=== PATIENT | female | born 1995 | race Caucasian/White ===

== ENCOUNTER 2025-01-02 15:18 | Outpatient (REF) | payer BC, MEDICAID, SELFPAY ==
--- OUTSIDE RECORDS SUMMARY | 2025-01-02 16:39 | XMS_ITS | Clinical Summary ---
Author Organization [facility] Address [address] [place] [address] Phone Care Team Providers Care Delivery Engineer Name Role Phone Unavailable Primary Care Provider [...]
--- OUTSIDE RECORDS SUMMARY | 2025-01-02 16:39 | XMS_ITS | Clinical Summary ---
Author Organization [facility] Address [address] [place] [address] Care Team Providers Care Ice Skater Name Role Phone Teena Orozco MD Primary [...] age to complete this topic Care Teams Ice Skater Relationship Specialty Start Date End Date Teena Orozco MD PCP - General Internal Medicine 01/06/21
--- OUTSIDE RECORDS SUMMARY | 2025-01-02 16:39 | XMS_ITS | Encounter Summary ---
Author Organization [facility] Address [address] [place] [address] Phone Care Team Providers Care Varitypist Name Role Phone Cristina Franks MD Primary Care Provider [phone] Encounter Details Date Type Department Care Team (Late st Contact Info) Description 01/09/2018 Conversion Encounter [facility] [address] [place] [address] Cristina Franks MD [address] [place] [address] Social History Tobacco Use Types Packs/Day Years [...] on filedocumented in this encounter Care Teams Varitypist Relationship Specialty Start Date End Date Cristina Franks MD [address] [place] [address] PCP - General 12/29/17 10/03/24 documented as of this encounter
--- OUTSIDE RECORDS SUMMARY | 2025-01-02 16:39 | XMS_ITS | Clinical Summary ---
Author Organization [facility] Address [address] [place] [address] Care Team Providers Care Napper Runner Name Role Phone Zee Lee Primary Care [...] from anxiety and stress Bipolar I disorder ([facility] V24, [facility] V28) Asthma 10/24/2015 Encounters Date Type Department Care Team Description 10/19/2024 10:30 AM EST Office Visit Gastroenterology - [address] [facility] [address] [place] [phone] Lesley Bojorquez MD Gastroesophageal reflux disease with esophagitis without hemorrhage (Primary Dx) from Last 3 Months Immunizations Name Administration Dates Next Due DTP 02/26/1998,1997,1997 DTaP (Infanrix) 6wks to less than 7yo 04/18/2002 ,11/08/1998 DTaP, IPV, Hib, Hepatitis B Combined (Vaxelis) 6wks to less than 5yo 11/08/1998,02/26/1998,1997,09/17 HQwN-VPH-ZTA (Pentacel) 2mo to less than 5yo 11/08/1998,02/26/1998,1997,09/17 [...] GERD (gastroesophageal reflux disease) Bipolar 1 disorder ([facility] V24, [facility] V28) Family History Medical History Relation [...] Description 01/09/2025 3:30 PM EDT Office Visit [facility] Hematology Oncology [address] [place] [phone] Cristin Dutta MD [address] [place] [address] Health Maintenance Due Date Last Done Comments [...] * HIV Screening (01/27/2024) HIV Screening abstracted [facility] Provider MD HEALTH MAINTENANCE Final Result * Hepatitis C Screening (01/27/2024) Hepatitis C Screening abstracted [facility] Provider MD HEALTH MAINTENANCE Final Result * Gonorrhea/Chlamydia Screening (01/27/2024) Gonorrhea/Chla mydia Screening abstracted [facility] Provider MD HEALTH MAINTENANCE Final Result * Pap smear (10/14/2022) 10/14/2022 Narrative HISTORICAL TESTING LAB RESULTING AGENCY - 10/19/2022 3:21 PM EST [id number] THINPREP PAP, IMAGED: NEGATIVE FOR SQUAMOUS INTRAEPITHELIAL [...] Most Recently Relevant to Health Maintenance Insurance [facility] [place] - [place] Care Teams Napper Runner Relationship Specialty Start Date End Date Zee Lee PA [address] [place] [address] PCP - General Beef Killer 12/11/24
== END 2025-01-02 15:19 | disposition home or self-care (01) ==
LOC: HO.LAB 15:18
PROVIDERS: PCP Physician Assistant; Visit Provider Internal Medicine Endocrinology, Diabetes & Metabolism
DX: Z13.89 Encounter for screening for other disorder (principal)

== ENCOUNTER 2025-01-02 15:18 | Outpatient (AMB) | payer BC, MEDICAID, SELFPAY ==
[2025-01-02 15:25] VITALS: BP 128/60; PULSE 102; O2SAT 96; BMI 44.8
--- NOTE | 2025-01-02 15:25 | MHC.OFFVIS ---
Vital Signs 01/02/25 15:25 Height 5 ft 4 in Weight 261 lb 3.964 oz BMI 44.8 BP 128/60 Blood Pressure Location Lt brachial Position Sitting Pulse 102 H Pulse Source Pulse Oximeter Pulse Oximetry (%) 96 Oxygen Delivery Method Room Air Intake Visit Reasons: PCOS Intake Note: New patient externally referred for PCOS. Charge Accounts Audit Clerk Required: No Accompanied by: Self / Same As Patient Allergies No Known Allergies Allergy (Verified 01/02/25 15:29) Medication List - Last Reconciled 01/02/25 by Glenn Perez MD bupropion HCl XL (Wellbutrin XL) 300 mg PO QAM bupropion HCl XL (Wellbutrin XL) 150 mg PO QAM clonidine HCl 0.1 mg PO BEDTIME fluticasone propionate 110 mcg/actuation 1 puff inhalation BID lurasidone (Latuda) 60 mg PO DAILY norgestimate-ethinyl estradiol 0.25-0.035 mg (Sprintec (28)) 1 tab PO DAILY HPI Comments Details: The patient is a 29-year-old female presenting with concerns regarding suspected Polycystic Ovarian Syndrome (PCOS). Her menstrual periods have been regular on control. She reports facial hair growth on her chin, managed by plucking. Prior testing has included elevated cortisol levels, and she suspects Venice's syndrome due to symptoms like facial fullness. She has experienced chronic weight issues despite losing 35 pounds since 2022 through lifestyle changes. A history of metformin use was noted for weight loss, which was discontinued due to side effects. The patient has a history of Bipolar Disorder, Type I, and no known personal history of diabetes. - Metformin: Previously used for weight loss; discontinued due to gastrointestinal side effects. - Corticosteroids: Elevation in cortisol noted, linked to ongoing evaluation for possible Venice's syndrome but could be due to control pills raising CBG. Menarche was age 11. Menses have been regular . on BCP OCP use: On Sprintec Metformin use: Took but had diarrhea Weight gain: Chronic problem. Lost 35 lbs since 2022 . Calorie deficit and exercise more . Never took wt loss medications. The patient has been practicing a calorie deficit diet since 2022, which has contributed to her weight loss. There is no mention of specific dietary preferences, food allergies, or intolerances. Emphasis on calorie reduction and general diet control is indicated as part of her weight management strategy. Hirsutism/hyperandrogenism: Chin, plucks to get rid of. Is bothersome to treat Trying to conceive/clomiphene: No Ovarian U/S: No T2DM or acanthosis: No -paternal gramndfather Snores at night - seeing sleep specialist - Endocrine System: Reports irregularities possibly indicative of PCOS, facial hair. - Reproductive System: Reports regular periods due to control; denies current ovulatory concerns. - Gastrointestinal System: Reports past metformin use, associated diarrhea. - Cardiovascular/Respiratory Systems: Denies snoring considerations; referred for possible sleep apnea. - Neurological/Psychiatric: Reports previous psychosis, diagnosed with Bipolar Disorder, Type I; no current neuropsychiatric issues mentioned. Lipids: [] BP: [] Labs: Testosterone equals 30. Normal prolactin, normal TSH, normal 70 hydroxy progesterone level [facility] Medical History (Updated 01/02/25 @ 15:28 by Glenn Perez MD) Polycystic ovary Surgical History No pertinent past surgical history Family History Mother Hypercholesteremia Father Hypercholesteremia Social History Alcohol intake: current Alcohol intake frequency: a few times a month e-Cigarette/Vaping Use: Currently Using Substance Use Type: Marijuana Physical Exam Vital Signs: Last Vital Signs Pulse 102 H 01/02/25 15:25 BP 128/60 01/02/25 15:25 Pulse Ox 96 01/02/25 15:25 Oxygen Delivery Method Room Air 01/02/25 15:25 BMI result Body Mass Index 44.8 Const Other: Absence of cushingoid features. Thyroid gland is normal size weighs about 15 g. There are no thyroid nodules palpated. Hair growth is present under chin Assessment & Plan Assessment & Plan (1) Polycystic ovary: Code(s): E28.2 - Polycystic ovarian syndrome Category: Medical Plan: This is a 29-year-old female with workup consistent with PCOS. We will complete workup by checking for adrenal tumor . We will make referral to radiation therapy technologist. 1. Polycystic Ovarian Syndrome (PCOS) The symptom profile suggests PCOS, including regular periods on contraceptives and facial hair growth, warranting further hormone level testing and potential treatment adjustments. 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 3. Insulin Resistance and Obesity Address ongoing weight management through sustained lifestyle strategies, assessing for potential pharmacological interventions for insulin resistance control. Will refer to radiation therapy technologist 4. Suspected Sleep Apnea Awaiting evaluation by a sleep specialist, considering sleep apnea's potential contribution to metabolic concerns. 5. Hirsutism Initiation of spironolactone, careful consideration and monitoring of function. Warned patient not to become on spironolactone of the dangers to the male fetus of doing so. We will check basic metabolic panel in 10 days I reviewed the patient's symptoms and provided detailed explanations and guidance on polycystic ovarian syndrome (PCOS) and its implications. Given the elevated cortisol levels, I elaborated on the testing procedures to rule out Ronnie's syndrome, detailing the 24-hour urine cortisol and salivary cortisol. Spironolactone was recommended for hirsutism, with a discussion on its efficacy, side effects, and contraceptive interactions. We discussed the weight management strategies and potential impact of insulin resistance. I advised on the necessity of sleep studies to further evaluate suspected sleep apnea. Emphasis was placed on comprehensive care, proper follow-up, and an integrated treatment plan. - Collect 24-hour urine sample as instructed for cortisol testing. - Consider having the salivary cortisol test as advised. - Start spironolactone as prescribed for managing facial hair. - Continue lifestyle modifications, including diet and exercise, to manage weight. - Follow up with a radiation therapy technologist for dietary guidance. - Await sleep specialist appointment in March for potential sleep apnea evaluation. - Return for follow-up in 3 months to review progress and test results. - Contact a healthcare provider if experiencing side effects or concerns. The patient had an opportunity to ask questions regarding treatment plan. The patient expressed understanding and agreement with the above treatment plan. Patient was informed and verbally consented to the use of an ambient scribe for clinic note documentation during this visit. Orders: Orders Cortisol, Free 24Hr Urine Today E28.2 - Polycystic ovarian syndrome Saliva Cortisol Today E28.2 - Polycystic ovarian syndrome DHEA Sulfate 10 Days E28.2 - Polycystic ovarian syndrome Creatinine, 24 Hr Group Today E28.2 - Polycystic ovarian syndrome Basic Metabolic Panel 10 Days E28.2 - Polycystic ovarian syndrome Referrals Nutrition/Dietitian Referral E28.2 - Polycystic ovarian syndrome Medications: New spironolactone 100 mg PO DAILY 30 tabs 4RF Coding Level of Care Code New Pt Level 4 (61067) Diagnoses Polycystic ovary E28.2
--- OUTSIDE RECORDS SUMMARY | 2025-01-02 16:13 | XMS_ITS | Clinical Summary ---
Author Organization Patient Business Ser [facility] Address [address] [place] [address] Care Team Providers Care Weaver Needle Loom Name Role Phone Zee Lee Primary Care Provider Allergies No known active allergies Medications norelgestromin-e thinyl estradiol (ORTHO EVRA) 150-35 mcg/[address] 1 Patch onto the skin once a week. Active buPROPion XL (WELLBUTRIN XL) 150 mg 24 hr tablet Take 1 tablet (150 mg total) by mouth 1 (one) time each day in the morning. Active norgestimate-eth inyl estradioL (ORTHO-CYCLEN) 0.25-35 mg-mcg per tablet Take 1 tablet by mouth 1 (one) time each day. 4 Active hydrOXYzine HCL (ATARAX) 10 mg tablet TAKE 1 TAB BY MOUTH EVERY DAY NEEDED FOR ANXIETY AND 1 TO 3 TABS AT BEDTIME NEEDED FOR SLEEP 1 Active lurasidone (Latuda) 40 mg tablet TAKE ONE TABLET BY MOUTH DAILY WITH DINNER*LAURIE TRISTAN MD 1 Active clonazePAM (KlonoPIN) 0.5 mg tablet Take 0.5 tablets (0.25 mg total) by mouth 2 (two) times a day. 1 Active albuterol HFA (PROAIR HFA ; PROVENTIL HFA ; VENTOLIN HFA) 90 mcg/actuation inhaler Inhale 2 Puffs into the lungs every 4 hours as needed for Cough or Wheezing. 1 Active FLUoxetine (PROzac) 40 mg capsule TAKE 1 CAPSULE BY MOUTH DAILY. TAKE WITH 20 MG TABLET FOR 60 MG TOTAL DAILY. 1 Active reservoir inhalation (INSPIREASE) device Inhale 1 Device into the lungs as needed (With inhaler). 6 Active lansoprazole (PREVACID) [address] Burkett ns:Gastroesophag eal reflux disease, unspecified whether esophagitis present Take 1 capsule (30 mg total) by mouth 1 (one) time each day. Do not crush or chew. 30 each 11 4 07/11/20 25 Active buPROPion XL (WELLBUTRIN XL) 300 mg 24 hr tablet Take 1 tablet (300 mg total) by mouth 1 (one) time each day. Active fluticasone HFA (Flovent HFA) 220 mcg/actuation inhaler Inhale 2 puffs by mouth. 4 Active lurasidone (LATUDA) 60 mg tablet Take 1 tablet (60 mg total) by mouth 1 (one) time each day. Active albuterol HFA (PROAIR HFA ; PROVENTIL HFA ; VENTOLIN HFA) 90 mcg/actuation inhaler Inhale 2 puffs by mouth Every 4 hours as needed. Active hydrocortisone 1 % topical cream apply topically 3 times a day for 7 days 4 Active cloNIDine (CATAPRES) 0.1 mg tablet Take 1 tablet (0.1 mg total) by mouth 2 (two) times a day if needed. 5 Active Active Problems Problem Noted Date Diagnosed Date Anxiety 07/03/2024 Major depression 07/03/2024 Chronic neutrophilia 02/10/2021 Overview (07/03/2024): Seen by Dr Casarez- last negative, posible from anxiety and stress Bipolar I disorder ([facility] V24, [facility] V28) Asthma 10/24/2015 Encounters Date Type Department Care Team Description 10/19/2024 10:30 AM EST Office Visit Gastroenterology - [address] [facility] [address] [place] [phone] Lesley Bojorquez MD Gastroesophageal reflux disease with esophagitis without hemorrhage (Primary Dx) from Last 3 Months Immunizations Name Administration Dates Next Due DTP 02/26/1998,1997,1997 DTaP (Infanrix) 6wks to less than 7yo 04/18/2002 ,11/08/1998 DTaP, IPV, Hib, Hepatitis B Combined (Vaxelis) 6wks to less than 5yo 11/08/1998,02/26/1998,1997,09/17 [id number] (Pentacel) 2mo to less than 5yo 11/08/1998,02/26/1998,1997,09/17 HPV 9-valent (Gardisil) 9yo to less than 46yo 06/30/2018,11/27/2016 HPV, Quadrivalent 11/25/2015 Hepatitis B Pediatric (Enger ix B; Recombivax HB) to less than 20 yo 05/09/1998,1997,1997 IPV Inactivated polio (Ipol) 6wks and older 04/18/2002,07/29/1998,1997,09/17 Influenza Quadravalent, MDCK , 0.5ml, preservative free (Flucelvax) 6mo and older 06/30/2018 Influenza trivalent, 0.5mL, preservative free (Fluarix; FluLaval; Fluzone) ages 6mo and older (Afluria) 3 years and older 06/01/2016,06/28/2015 MMR, measles mumps and rubel la Live (Priorix; M-M-R II) 12mo and older 04/18/2002,07/29/1998 Meningococcal MCV4P 06/18/2014,06/24/2009 PPD Test 06/28/2015 Pneumococcal polysaccharide 23 valent (Pneumovax 23) 2yo and older 11/25/2015 Tdap Tetanus diptheria acell ular pertussis (Boostrix; Adacel) 7yo and older 12/29/2018,06/24/2009 Varicella live (Varivax) 12m o and older 04/11/2008,07/29/1998 Surgical History Surgery Date Site/Laterality Comments WISDOM TOOTH EXTRACTION 10/07/15 PROCEDURE: HISTORICAL WISDOM TEETH EXTRACTION OTHER SURGICAL HISTORY 10/22 PROCEDURE: HISTORICAL UNSPECIFIED FRACTURE; COMMENT: supracondylar fracture Medical History Medical History Date Comments Anxiety DX:Anxiety Major depression DX:Major depres shawna Asthma 10/24/2015 DX:Asthma Receptive-expressive language delay 10/24/2015 DX:Receptive-expressive language delay GERD (gastroesophageal reflux disease) Bipolar 1 disorder ([facility] V24, [facility] V28) Family History Medical History Relation Name Comments Other: crohns Brother Other: high cholesterol Father Other: lung disease Maternal Grandmother emphysema / Other: crohns Mother high cholester ol Other: kidney cancer Paternal Grandfather diabetes/ HTN Breast cancer Paternal Grandmother Stroke Paternal Grandmother age 50' s Other: aspergers Sister Cervical cancer Neg Hx Colon cancer Neg Hx Ovarian cancer Neg Hx Pancreatic cancer Neg Hx Uterine cancer Neg Hx Relation Name Status Comments Brother Father Maternal Grandmother Mother Paternal Grandfather Paternal Grandmother Sister Social History Tobacco Use Types Packs/Day Years Used Date Smoking Tobacco: Never Smokeless Tobacco: Never Alcohol Use Standard Drinks/Week Comments Yes 0 (1 standard drink = 0.6 oz pur e alcohol) SOCIALLY Interpersonal Safety Answer Date Record ed Physical Abuse 08/25/2024 Verbal Abuse 08/25/2024 Comments No Sex and Gender Information Value Date Recorded Sex Assigned at Female 12/07/2024 4:11 PM EDT Legal Sex Female 3:29 PM EDT Gender Identity Female 12/07/2024 4:11 PM EDT Sexual Orientation Not on file Obstetrics History Last Filed Vital Signs Vital Sign Reading Time Taken Comments Blood Pressure 113/73 08/25/2024 10:14 AM EST Pulse 88 08/25/2024 10:14 AM EST Temperature 36.3 ??C (97.3 ??F) 08/25/2024 9:54 AM ES T Respiratory Rate 14 08/25/2024 10:14 AM EST Oxygen Saturation 98% 08/25/2024 10:14 AM EST Inhaled Oxygen Concentration - - Weight 114 kg (252 lb) 10/19/2024 10:18 AM EST Height 162.6 cm (5' 4 ) 10/19/2024 10:18 AM EST Body Mass Index 43.26 10/19/2024 10:18 AM EST Plan of Treatment Upcoming Encounters Date Type Department Care Team (Late st Contact Info) Description 01/09/2025 3:30 PM EDT Office Visit [facility] Hematology Oncology [address] [place] [phone] Cristin Dutta MD [address] [place] [address] Health Maintenance Due Date Last Done Comments Pneumococcal Vaccine: Pediatrics (0 to 5 Years) and At-Risk Patients (6 to 64 Years) (2 of 2 - PCV) 11/24/2016 11/25/2015 Depression Screening 02/15/2021 Social Influencers of Health Screening 02/15/2021 COVID-19 Vaccine ( season) 2024 09/05/2021, 10/28/2020 Influenza Vaccine (Season Ended) 2025 11/09/2022, 05/13/2020, 06/30/2018, Additional history exists Cervical Cancer Screening: Pap Smear 10/14/2025 10/14/2022, 10/14/2022, 10/14/2022, Additional history exists Cholesterol Screening (Lipid Panel) 11/26/2026 11/26/2021 DTaP,Tdap,and Td Vaccines (8 - Td or Tdap) 12/29/2028 12/29/2018, 06/24/2009, 04/18/2002, Additional history exists HIB Vaccines Completed 11/08/1998, 10/21, 11/08/1998, Additional history exists Hepatitis B Vaccines Completed 11/08/1998, 05/09/1998, 02/26/1998, Additional history exists IPV Vaccines Completed 04/18/2002, 10/21, 11/08/1998, Additional history exists MMR Vaccines Completed 04/18/2002, 07/29/1998 Varicella Vaccines Completed 04/11/2008, 07/29/1998 Meningococcal ACWY Vaccine Completed 06/18, 06/18/2014, 06/24/2009, Additional history exists HPV Vaccines Completed 06/30/2018, 04/02/2017, 11/25/2015 Gonorrhea/Chlamydia Screening Discontinued 01/27/2024 HIV Screening Completed 01/27/2024, 01/27/2024 Hepatitis C Screening Completed 01/27/2024 Hepatitis A Vaccines Aged Out No long er eligible based on patient's age to complete this topic Meningococcal B Vaccine Aged Out No l onger eligible based on patient's age to complete this topic RSV Immunization Patients Under 20 months Aged Out No longer eligible based on patient's age to complete this topic Procedures Procedure Name Priority Date/Time Associated Diagnosis Comments HEPATITIS C SCREENING Routine 01/27/2024 HIV SCREENING Routine 01/27/2024 GONORRHEA/CHLAMYDIA SCRREENING Routine 01/27/2024 PAP SMEAR Routine 10/14/2022 LIPID PANEL Routine 11/26/2021 from Last 3 Months or Most Recently Relevant to Health Maintenance Results * HIV Screening (01/27/2024) HIV Screening abstracted [facility] Provider MD HEALTH MAINTENANCE Final Result * Hepatitis C Screening (01/27/2024) Hepatitis C Screening abstracted [facility] Provider MD HEALTH MAINTENANCE Final Result * Gonorrhea/Chlamydia Screening (01/27/2024) Gonorrhea/Chla mydia Screening abstracted [facility] Provider MD HEALTH MAINTENANCE Final Result * Pap smear (10/14/2022) 10/14/2022 Narrative HISTORICAL TESTING LAB RESULTING AGENCY - 10/19/2022 3:21 PM EST [id number] THINPREP PAP, IMAGED: NEGATIVE FOR SQUAMOUS INTRAEPITHELIAL LESION AND MALIGNANCY . REACTIVE CELLULAR CHANGES. SHIFT IN SUSAN, SUGGESTIVE OF BACTERIAL VAGINOSIS. CHARMAINE CANCHOLA , CT(ASCP) (CASE SCREENED 10 19 2022) LAURI RALPH M.D. , PATHOLOGIST (CASE ELECTRONICALLY SIGNED 10 19 2022) RESULT OF APTIMA HIGH RISK HPV ASSAY: HIGH RISK HPV: ??NEGATIVE (SEROTYPES 16,18,31,33,35,39,45,51,52,56,58,59,66,68) COMPLETED ON 2022-10-16 ADEQUACY: SATISFACTORY ENDOCERVICAL/TRANSFORMATION ZONE COMPONENT PRESENT. SOURCE: THINPREP PAP HPV ANY DX: ??REFLEX 16 AND 18, CERVICAL, IMAGED CLINICAL INFORMATION: HPV ANY DIAGNOSIS, HORMONES, NO LMP RECORDED, LAST ANNUAL 10/14/20, PAP HX; NEGATIVE. ??Z12.4 Yaneth Casarez CNM LAB CYTOLOGY ORDERABLES Final Result HISTORICAL TESTING LAB RESULTING AGENCY * (ABNORMAL) Lipid panel (11/26/2021) LDL/HDL Ratio 5(A) 0 - 4 Triglycerides 203(A) 0 - 150 mg/dL Cholesterol 213(A) 0 - 200 mg/dL HDL 41 >=40 mg/dL LDL Cholesterol 132(A) 0 - 100 mg/dL Blood Venous blood specimen / Unknown Historical Provider LAB BLOOD ORDERABLES Marcelle l Result from Last 3 Months or Most Recently Relevant to Health Maintenance Insurance [facility] MEDICAID - [place] Care Teams Weaver Needle Loom Relationship Specialty Start Date End Date Zee Lee PA [address] [place] [phone] PCP - General Mercerizing Range Feeder 12/11/24
--- OUTSIDE RECORDS SUMMARY | 2025-01-02 16:13 | XMS_ITS | Clinical Summary ---
Author Organization [facility] Address [address] [place] [phone] Phone Care Team Providers Care Clinical Social Work Aide Name Role Phone Unavailable Primary Care Provider Unavailabl e Immunizations Immunization Administration Dates Next Due DTaP 04/18/2002, 9,02/26/1998,11/29,1997 Hep B, ped/adol 05/09/1998,1997,1997 Hib (PRP-T) 11/08/1998, 8,1997,09/17 IPV 04/18/2002, 8,1997,09/17 Influenza 07/15/2007,08/08/2004,06/25/2004 Influenza, injectable, quadrivalent 06/28/2015 Influenza, injectable, quadr ivalent, preservative free 06/18/2014 MMR 04/18/2002,07/29/1998 Meningococcal Conj (Menactra) MCV4P 06/18/2014,1 08/24/2008 Tdap 06/24/2009 Unknown Vaccine 06/25/2015 Varicella 04/11/2008,07/29/1998 Family History Relation Name Status Comments Father Alive high cholestero l, overweight age: 53 diagnosed with Hypercholesteremia Father's Brother Alive Father's Sister Alive Maternal Grandfather did not know her father Maternal Grandmother of lung disease, emphysema Mother Alive high cholestero l, cystits, allergies, has mild crohn age: 49 Other Siblings: Valerie patrick has asperger Paternal Grandfather Alive kidney cancer, DM, had one kidney removed, HTN Paternal Grandmother Alive stroke in her 50s Social History Tobacco Use Types Packs/Day Years Used Date Smoking Tobacco: Never Assessed Comments Unknown Sex and Gender Information Value Date Recorded Sex Assigned at Not on file Legal Sex Female 6:18 PM EDT Gender Identity Not on file Sexual Orientation Not on file Last Filed Vital Signs Vital Sign Reading Time Taken Comments Blood Pressure 120/72 06/17/2015 12:00 AM EDT Pulse 80 01/02/2015 12:00 AM EDT Temperature 37.3 ??C (99.2 ??F) 06/17/2015 12:00 AM E DT Respiratory Rate - - Oxygen Saturation 97% 06/28/2014 12:00 AM EST Inhaled Oxygen Concentration - - Weight 88.2 kg (194 lb 6.4 oz) 06/17/2015 12:00 AM EDT Height 162.6 cm (5' 4 ) 06/17/2015 12:00 AM EDT Body Mass Index 33.37 06/17/2015 12:00 AM EDT Plan of Treatment Health Maintenance Due Date Last Done Comments DTaP,Tdap,and Td Vaccines (7 - Td or Tdap) 06/24/2019 06/24/2009, 04/18/2002, 11/08/1998, Additional history exists Influenza Vaccines (#1) 2024 06/28/20 15, 06/18/2014, 07/15/2007, Additional history exists COVID-19 Vaccine ( season) 2024 Hepatitis B Vaccines Completed 05/09/1998, 1997, 1997 HIB Vaccines Completed 11/08/1998, 02/1998, 1997, Additional history exists IPV Vaccines Completed 04/18/2002, 02/1998, 1997, Additional history exists MMR Vaccines Completed 04/18/2002, 07/29/1998 Varicella Vaccines Completed 04/11/2008, 07/29/1998 Meningococcal Vaccine Completed 06/18/2014, 009 HPV Vaccines Aged Out No longer eligi ble based on patient's age to complete this topic Hepatitis A Vaccines Aged Out No long er eligible based on patient's age to complete this topic Men B Vaccine Aged Out No longer elig ible based on patient's age to complete this topic Pneumococcal Vaccine Aged Out No long er eligible based on patient's age to complete this topic
--- OUTSIDE RECORDS SUMMARY | 2025-01-02 16:13 | XMS_ITS | Clinical Summary ---
Author Organization [facility] Address [address] [place] [address] Care Team Providers Care Content Creation Manager Name Role Phone Teena Orozco MD Primary Care Provider Unavailabl e Allergies No known active allergies Medications Medication Sig Dispensed Refills Start Date End Date Status FLUoxetine (PROzac) 40 MG capsule Take 40 mg by mouth daily. 0 Active FLUoxetine (PROzac) 20 MG capsule Take 20 mg by mouth daily. 0 Active norgestimate-ethiny l estradiol (Ortho-Cyclen, 28,) 0.25-35 MG-MCG per tablet Take 1 tablet by mouth daily. 0 Active Albuterol Sulfate (albuterol COMMON CANISTER) 108 (90 Base) MCG/ACT inhaler Inhale 2 puffs into the lungs every 4 (four) hours as needed for wheezing. 0 Active fluticasone (FLOVENT HFA) 110 MCG/ACT inhaler Inhale 2 puffs into the lungs 2 (two) times a day. 0 Active albuterol (PROVENTIL) (2.5 MG/3ML) 0.083% nebulizer solution Take 2.5 mg by nebulization every 4 (four) hours as needed for wheezing. 0 Active ARIPiprazole (ABILIFY) 5 MG tablet Take 5 mg by mouth daily. 0 Active traZODone (DESYREL) 50 MG tablet Take 50 mg by mouth every night at bedtime. 0 Active Active Problems Problem Noted Date Diagnosed Date Chronic neutrophilia 02/10/2021 Obesity, Class III, BMI 40-49.9 (morbid obesity) 02/02/2021 Major depression 02/02/2021 Anxiety 02/02/2021 Leukocytosis 01/30/2021 Bipolar 1 disorder, depressed 01/27/2021 Mild intermittent asthma without complication Resolved Problems Problem Noted Date Diagnosed Date Resolved Date Erythrocytosis 01/30/2021 02/02/2021 Family History Medical History Relation Name Comments Cancer Maternal Grandmother Cancer Paternal Grandfather Relation Name Status Comments Maternal Grandmother Paternal Grandfather Social History Tobacco Use Types Packs/Day Years Used Date Smoking Tobacco: Never Smokeless Tobacco: Never Alcohol Use Standard Drinks/Week Comments Yes 0 (1 standard drink = 0.6 oz pur e alcohol) social Sex and Gender Information Value Date Recorded Sex Assigned at Not on file Gender Identity Not on file Sexual Orientation Not on file Last Filed Vital Signs Vital Sign Reading Time Taken Comments Blood Pressure 133/96 01/27/2021 3:05 PM EDT Pulse 98 01/27/2021 3:05 PM EDT Temperature 36.2 ??C (97.1 ??F) 01/27/2021 3:05 PM ED T Respiratory Rate - - Oxygen Saturation 97% 01/27/2021 3:05 PM EDT Inhaled Oxygen Concentration - - Weight 109.4 kg (241 lb 3.2 oz) 01/27/2021 3:05 PM EDT Height 162.6 cm (5' 4 ) 01/27/2021 3:05 PM EDT Body Mass Index 41.4 01/27/2021 3:05 PM EDT Plan of Treatment Health Maintenance Due Date Last Done Comments Hepatitis B Vaccines (1 of 3 - 3-dose series) 1997 Hepatitis C Screening 1997 COVID-19 Vaccine (#1) 2002 Depression Screening 2009 Preventative Health Evaluation 2015 Pneumococcal Vaccine (2 of 2 - PCV) 11/24/2016 11/25/2015 Cervical Cancer Screening (Pap Smear) 2018 Influenza Vaccine (#1) 2024 8, 06/01/2016, 06/28/2015, Additional history exists DTap / Tdap / Td (8 - Td or Tdap) 12/29/2028 12/29/2018, 06/24/2009, 04/18/2002, Additional history exists RSV Ped < 20 months Aged Out No longe r eligible based on patient's age to complete this topic Care Teams Content Creation Manager Relationship Specialty Start Date End Date Teena Orozco MD PCP - General Internal Medicine 01/06/21
--- OUTSIDE RECORDS SUMMARY | 2025-01-02 16:13 | XMS_ITS | Encounter Summary ---
Author Organization [facility] Address [address] [place] [phone] Phone Care Team Providers Care Stopping Builder Name Role Phone Cristina Franks MD Primary Care Provider [phone] Encounter Details Date Type Department Care Team (Late st Contact Info) Description 01/09/2018 Conversion Encounter [facility] [address] [place] [address] Cristina Franks MD [address] [place] [address] Social History Tobacco Use Types Packs/Day Years Used Date Smoking Tobacco: Never Assessed Comments Unknown Sex and Gender Information Value Date Recorded Sex Assigned at Not on file Legal Sex Female 6:18 PM EDT Gender Identity Not on file Sexual Orientation Not on file documented as of this encounter Plan of Treatment Not on file documented as of this encounter Visit Diagnoses Not on filedocumented in this encounter Care Teams Stopping Builder Relationship Specialty Start Date End Date Cristina Franks MD [address] [place] [address] PCP - General 12/29/17 10/03/24 documented as of this encounter
== END 2025-01-02 16:11 | disposition home or self-care (01) ==
LOC: HO.ENCR 15:19
PROVIDERS: PCP Physician Assistant; Visit Provider Internal Medicine Endocrinology, Diabetes & Metabolism
DX: E28.2 Polycystic ovarian syndrome (principal)
CPT/HCPCS: 99204

== ENCOUNTER 2025-01-07 09:52 | Outpatient (REF) | payer BC, MEDICAID, SELFPAY ==
[2025-01-08 18:59] LABS: Creatinine, mg/dL 104.64
[2025-01-09 06:51] LABS: Creatinine, 24Hr Urine 1.7 G/Day (1.0-2.0); Total Volume 24 Hour Urine 1625 mL
[2025-01-17 22:40] LABS: Cortisol Free, 24 Hr Urine 54.6 mcg/24 h (4.0-50.0); Creatinine, 24 Hr Urine 1.75 g/24 h (0.50-2.15); Total Volume, 24 Hr Urine 1625 mL
== END 2025-01-07 09:53 | disposition home or self-care (01) ==
LOC: HO.LNP 09:52
PROVIDERS: Visit Provider Internal Medicine Endocrinology, Diabetes & Metabolism
DX: E28.2 Polycystic ovarian syndrome (principal)
CPT/HCPCS: 82530; 82570

== ENCOUNTER 2025-01-08 15:51 | Outpatient (REF) | payer BC, MEDICAID, SELFPAY ==
--- OUTSIDE RECORDS SUMMARY | 2025-01-08 15:54 | XMS_ITS | Encounter Summary ---
Author Organization [facility] Address [address] [place] [address] Care Team Providers Care Hand Straightener Name Role Phone Love Aguirre MD Primary Care Provider Unavailable Teena Orozco MD Primary Care Provider Unavaila Radha Martinez MD Primary Care Provider Unavailable Kathy Miranda MD Primary Care Provider + [phone] Reason for Referral * EXTERNAL (Routine) - Authorized/Booked Specialty Diagnoses / Procedures Referred By Scarlet shultz Referred To Contact Gastroenterology Procedures REFERRAL TO GASTROENTEROLOGY Love Aguirre MD [address] [place] [address] Oni Lebron MD [address] [place] [address] Referral ID Status Reason Start Date Expiration Date V isits Requested Visits Authorized SEE REVIEW 05/17/2019 Authorized/ Booked 05/17/2019 08/17/2019 1 1 Reason for Visit * Reason Onset Date Comments Vest Maker Feedback 05/17/2019 Dr. Lebron Encounter Details Date Type Department Care Team Description 05/17/2019 Telephone Adult Medicine - [facility] [address] [place] [address] Love Aguirre MD Vest Maker Feedback (Dr. Lebron) Social History Tobacco Use Types Packs/Day Years Used Date Smoking Tobacco: Never Smokeless Tobacco: Never Alcohol Use Standard Drinks/Week Comments No 0 (1 standard drink = 0.6 oz pur e alcohol) Sex Assigned at Date Recorded Not on file documented as of this encounter Miscellaneous Notes * Telephone Encounter - Joshua Alvares - 05/17/2019 4:03 PM EDT [facility] Specialty Referral Status [ Save Response to Batch ] Request: [id number] [facility] Trace #: [id number] Patient: ROYAL DAVIS Subscriber: RAIAS J JAMES Submitter : LOVE LATHAM Submitter Type: Provider : 1995 Referral (#[id number]) Specialty Care Review Type: Initial Certification Status : Certified in total Service Type : Medical Care Place Of Service : Office Visits : 6 Service Date : 05/17/2019-05/16/2020 Service Providers Provider Name ID Provider Type Specialty MD ONI LEBRON NPI : [id number] Performing Specialist Please review this patients new referral request. The referral has been pended. Please complete thefollowing: If approved> sign order If denied>please give instructions and route to your practice nursing pool. Practice nurse should inform referrals and the patient if denied. * Telephone Encounter - Jesus Petty - 05/17/2019 3:53 PM EDT What insurance does the patient have today? Payor: [place]FS / Plan: HMO $30 [id number] / Product Type: HMO PRE-PAID Effective 05/23/09: [facility] will not retro referral requests over 90 days. If request is for this please instruct patient to call the 800# on their insurance card to appeal. Do not submit a request. Referrals cannot be processed if the insurance is not accurate. If the insurance listed above in red is NO BILLING INFORMATION FOUND FOR THIS ENCOUTNER The patients correct insurance must be obtained and registered in [facility] or their referral can not be processed. Is this a retro request? NO. If yes for what date of service do you need the retro referral? N/A Who is calling to request this referral? The pt mother raisa If the caller is not the patient, what is their name? N/A Ask the patient WHO referred them to this specialty: Patient self referred FIRST and LAST NAME of SPECIALIST PATIENT is seeing: Edgar danielle What specialty is this? Gastrology DIAGNOSIS Patient is being seen for (Not a body part or a procedure): Vomitting Have you seen this SPECIALIST for this PROBLEM/DX before?NO If YES, when: Have you checked REVIEW or the APPT DESK to see if this referral has already been done or has visits left? YES Is this visit:Initial Visit Address of Specialist: [address] [place] [address] Phone # of Specialist: [phone] Fax #: (if applicable): Does patient have an appointment scheduled?: YES Date of appointment- (including a retro-request): 06/16/19 Is this appointment related to: Not MVA, WC or Surgery related documented in this encounter Plan of Treatment Not on file documented as of this encounter Visit Diagnoses Not on filedocumented in this encounter Care Teams Hand Straightener Relationship Specialty Start Date End Date [place]-Love Latham MD PCP - General Internal Medicine 08/21/1511/28/20 Teena Orozco MD PCP - General Internal Medicine 11/29/20 03/17/21 Radha Zhang MD PCP - General Internal Medicine 03/18/2110/22 Kathy Miranda MD [facility] [place] [address] PCP - General Internal Medicine 11/14/21 documented as of this encounter
--- OUTSIDE RECORDS SUMMARY | 2025-01-08 15:54 | XMS_ITS | Encounter Summary ---
Author Organization [facility] Address [address] [facility] [address] Care Team Providers Care Huc Name Role Phone Kathy Miranda MD Primary Care Provider + [phone] Reason for Visit * Reason Comments E-prescribe Rx Request Encounter Details Date Type Department Care Team Description 01/01/2024 Refill OBGYN - [place] [address] [place] [address] Yaneth Casarez CNM [address] [place] [address] E-prescribe Rx Request Social History Tobacco Use Types Packs/Day Years Used Date Smoking Tobacco: Never Smokeless Tobacco: Never Alcohol Use Standard Drinks/Week Comments Yes 0 (1 standard drink = 0.6 oz pur e alcohol) social Sex Assigned at Date Recorded Not on file documented as of this encounter Miscellaneous Notes * Telephone Encounter - Wanda Martínez - 01/03/2024 9:56 AM EDT Last annual 10/14/22 Annual 01/27/24 documented in this encounter Plan of Treatment Not on file documented as of this encounter Visit Diagnoses Not on filedocumented in this encounter Care Teams Huc Relationship Specialty Start Date End Date Kathy Miranda MD [address] [place] [address] PCP - General Internal Medicine 11/14/21 documented as of this encounter
--- OUTSIDE RECORDS SUMMARY | 2025-01-08 15:54 | XMS_ITS | Encounter Summary ---
Author Organization [facility] Address [address] [place] [address] Care Team Providers Care Breeder Hen Service Technician Name Role Phone Audelia Aguirre MD Primary Care Provider Unavailable Teena Orozco MD Primary Care Provider UnavailRadha Oorurke MD Primary Care Provider Unavailable Kathy Miranda MD Primary Care Provider [phone] Encounter Details Date Type Department Care Team Description 05/02/2018 [facility] Medical Records [address] [place] [address] Abstract, Provider Social History Tobacco Use Types Packs/Day Years [...] on filedocumented in this encounter Care Teams Breeder Hen Service Technician Relationship Specialty Start Date End Date Audelia Aguirer MD PCP - General Internal Medicine 08/21/1511/28/20 Teena Orozco MD PCP - General Internal Medicine 11/29/20 03/17/21 Radha Zhang MD PCP - General Internal Medicine 03/18/2110/22 Kathy Miranda MD [address] [place] [address] PCP - General Internal Medicine 11/14/21 documented as of this encounter
--- OUTSIDE RECORDS SUMMARY | 2025-01-08 15:54 | XMS_ITS | Encounter Summary ---
Author Organization [facility] Address [facility] [place] [address] Care Team Providers Care Accounts Payable Clerk Name Role Phone Gaby-Audelia Quiroz MD Primary Care Provider Unavailable Teena Orozco MD Primary Care Provider UnavailRadha Orourke MD Primary Care Provider Unavailable Kathy Miranda MD Primary Care Provider + [phone] Reason for Visit * Reason Onset Date Comments refill request 10/27/2019 Encounter Details Date Type Department Care Team Description 10/27/2019 Refill Adult Medicine - [address] [address] [facility]Audelia Quiroz MD refill request Social History Tobacco Use Types Packs/Day Years Used Date Smoking Tobacco: Never Smokeless Tobacco: Never Alcohol Use Standard Drinks/Week Comments No 0 (1 standard drink = 0.6 oz pur e alcohol) Sex Assigned at Date Recorded Not on file documented as of this encounter Miscellaneous Notes * Telephone Encounter - Lizzy Felipe - 10/27/2019 11:32 AM EST Patient would like script to be: E-PRESCRIBED/FAXED TO PHARMACY WHEN WAS THE PATIENT'S LAST APPOINTMENT IN ADULT MEDICINE? 07/24/20 WHEN WAS THE LAST TIME THE PATIENT SAW THEIR PCP? Same as above Does patient have an upcoming appointment? Yes 10/30/19 (THE MEDICATION REQUESTED IS ON THE MED LIST ABOVE) All of the medications requested were on the CURRENT MEDS list Did you check the Pharmacy information above?: YES Patient wants: 30 -day supply Is this a mail order prescription request ? NO If the refill is from a FAXED refill request what is the RX # listed on the fax? N/A Patients current insurance carrier is: Payor: [facility]/Jongla FFS / Plan: [place] $30 [id number] / ProductType: [place] PRE-PAID documented in this encounter Plan of Treatment Not on file documented as of this encounter Visit Diagnoses Not on filedocumented in this encounter Care Teams Accounts Payable Clerk Relationship Specialty Start Date End Date [facility]Audelia Quiroz MD PCP - General Internal Medicine 08/21/1511/28/20 Teena Orozco MD PCP - General Internal Medicine 11/29/20 03/17/21 Radha Zhang MD PCP - General Internal Medicine 03/18/2110/22 Kathy Miranda MD [address] [place] [address] PCP - General Internal Medicine 11/14/21 documented as of this encounter
--- OUTSIDE RECORDS SUMMARY | 2025-01-08 15:54 | XMS_ITS | Encounter Summary ---
Author Organization [facility] Address [facility] [place] [address] Care Team Providers Care Battery Container Inspector Name Role Phone Gaby-Audelia Quiroz MD Primary Care Provider Unavailable Teena Orozco MD Primary Care Provider UnavailRadha Orourke MD Primary Care Provider Unavailable Kathy Miranda MD Primary Care Provider + [phone] Reason for Visit * Reason Onset Date Comments Medication 10/22/2015 Encounter Details Date Type Department Care Team Description 10/22/2015 Telephone Adult Medicine - [address] [address] Gaby-Audelia Quiroz MD Medication Social History Tobacco Use Types Packs/Day Years Used Date Smoking Tobacco: Never Alcohol Use Standard Drinks/Week Comments Not Asked 0 (1 standard drink = 0.6 oz pur e alcohol) Sex Assigned at Date Recorded Not on file documented as of this encounter Miscellaneous Notes * Telephone Encounter - Latia Alegria L.P.N. - 10/22/2015 10:02 AM EST Spoke w/ Mother. She states Evelia has been talking sporadic waves of thoughts and is rambling on. Has a change in personality. Is questioning the Lexapro . .Denies any suicidal thoughts or harm to others.Appt given w/ Ga tomorrow At 2pm. Strongly advised if She has any changes that Would harm heror others To go to er. Mother agrees. FYI * Telephone Encounter - Hazel Melendez - 10/22/2015 9:43 AM EST Pts mother is calling.(on verbal) would like to talk to a nurse or Marita Moise in regards to the ptsescitalopram (LEXAPRO) 10 MG tablet RX. States that this RX is making the pt talk in circles and have racing thoughts. States that the pt is not in any danger. Please advise. documented in this encounter Plan of Treatment Not on file documented as of this encounter Visit Diagnoses Not on filedocumented in this encounter Care Teams Battery Container Inspector Relationship Specialty Start Date End Date [place]-Audelia Quiroz MD PCP - General Internal Medicine 08/21/1511/28/20 Teena Orozco MD PCP - General Internal Medicine 11/29/20 03/17/21 Radha Zhang MD PCP - General Internal Medicine 03/18/2110/22 Kathy Miranda MD [address] [place] [address] PCP - General Internal Medicine 11/14/21 documented as of this encounter
--- OUTSIDE RECORDS SUMMARY | 2025-01-08 15:54 | XMS_ITS | Encounter Summary ---
Author Organization [facility] Address [address] [place] [address] Care Team Providers Care Development Analyst Name Role Phone [place]-Audelia Quiroz MD Primary Care Provider Unavailable Teena Orozco MD Primary Care Provider UnavailRadha Orourke MD Primary Care Provider Unavailable Kathy Miranda MD Primary Care Provider + [phone] Reason for Visit * Reason Onset Date Comments medication problems 10/31/2015 Encounter Details Date Type Department Care Team Description 10/31/2015 Telephone Adult Medicine - [address] [address] Ga Moise PA-C medication problems Social History Tobacco Use Types Packs/Day Years Used Date Smoking Tobacco: Never Alcohol Use Standard Drinks/Week Comments Not Asked 0 (1 standard drink = 0.6 oz pur e alcohol) Sex Assigned at Date Recorded Not on file documented as of this encounter Miscellaneous Notes * Telephone Encounter - Ga Moise PA-C - 10/31/2015 5:40 PM EST I spke the Maria Elena regarding Evelia's recent behavior. Maria Elena informs me that Evelia was caught cheatingon an exam. She feels that Evelia's behavior has changed since beginninh 10 mg lexapro several weeksago. Her adjustment counselor at school thinks that Evelia is hypomanic. She has an appt with on 11/06. I will see if we can have this appt moved forward. Maria Elena understands and agrees with this plan. * Telephone Encounter - Cori Cheema - 10/31/2015 10:16 AM EST Who is calling? Other: Name of caller: Maria Elena Relationship to patient: mother (on release) Name of the medication escitalopram (LEXAPRO) 10 MG tablet What is the specific problem or interaction? Caller states this med is making the patient do thingsthat she doesn't normally do, example: cheating on a test: mother would like instructions as to howto taper the patient off of this med and would like to discuss the opportunity of RX a different med: please advise If the patient is having a problem with taking the med - how long has the problem been going on? N/A documented in this encounter Plan of Treatment Not on file documented as of this encounter Visit Diagnoses Not on filedocumented in this encounter Care Teams Development Analyst Relationship Specialty Start Date End Date [place]-Audelia Quiroz MD PCP - General Internal Medicine 08/21/1511/28/20 Teena Orozco MD PCP - General Internal Medicine 11/29/20 03/17/21 Radha Zhang MD PCP - General Internal Medicine 03/18/2110/22 Kathy Miranda MD [address] [place] [address] PCP - General Internal Medicine 11/14/21 documented as of this encounter
--- OUTSIDE RECORDS SUMMARY | 2025-01-08 15:54 | XMS_ITS | Encounter Summary ---
Author Organization [facility] Address [facility] [place] [address] Care Team Providers Care Customs Entry Writer Name Role Phone Kathy Miranda MD Primary Care Provider + [phone] Encounter Details Date Type Department Care Team Description 11/27/2021 Telephone Adult Medicine - [place] [address] [place], [place] [id number] Jessica Puga NP [address] [place] [address] Social History Tobacco Use Types Packs/Day Years Used Date Smoking Tobacco: Never Smokeless Tobacco: Never Alcohol Use Standard Drinks/Week Comments Yes 0 (1 standard drink = 0.6 oz pur e alcohol) social Sex Assigned at Date Recorded Not on file COVID-19 Exposure Response Date Recorded In the last 10 days, have yo u been in contact with someone who was confirmed or suspected to have Coronavirus/COVID-19? No / Unsure 11/26/2021 2:47 PM EDT documented as of this encounter Miscellaneous Notes * Telephone Encounter - Jenni Gracia L.P.NNini - 11/27/2021 3:06 PM EDT Message left on verified voicemail for Demetria to return our call. Please call extension [phone] if she returns FYI * Telephone Encounter - Jessica Puga NP - 11/27/2021 12:42 PM EDT Can you please call Demetria Menon psychiatric ACCOUNT TECHNICIAN phone #[phone] since I cannot reach her and shecannot reach me. I would like to inform her about her patient Evelia Davis whom I saw yesterday with complaint on intractable vomiting. Patient started to experience the symptoms when she was taking A bilify, now she is on Latuda and she still experiences symptoms of vomiting. I am doing work-up fordyspepsia, H. pylori infection, but I want to be sure that it is not Latuda adverse effect. documented in this encounter Plan of Treatment Not on file documented as of this encounter Visit Diagnoses Not on filedocumented in this encounter Care Teams Customs Entry Writer Relationship Specialty Start Date End Date Kathy Miranda MD [facility] [address] PCP - General Internal Medicine 11/14/21 documented as of this encounter
--- OUTSIDE RECORDS SUMMARY | 2025-01-08 15:54 | XMS_ITS | Encounter Summary ---
Author Organization [facility] Address [facility] [place] [address] Care Team Providers Care Director Of Group Counseling Program Name Role Phone Kathy Miranda MD Primary Care Provider + [phone] Encounter Details Date Type Department Care Team Description 11/26/2021 Orders Only Lab - [place] [address] [place] [address] Jessica Puga NP [address] [place] [address] Vomiting, intractability of vomiting not specified, presence of nausea not specified, unspecified vomiting type (Primary Dx) Social History Tobacco Use Types Packs/Day Years [...] PM EDT documented as of this encounter Plan of Treatment Scheduled Orders Name Type Priority Associated Diagnoses Orde r Schedule H PYLORI BREATH TEST ANALYSIS Lab Routine Vomiting, intractability of vomiting not specified, presence of nausea not specified, unspecified vomiting type Expected: 11/26/2021, Expires: 11/26/2022 documented as of this encounter Visit Diagnoses Diagnosis Vomiting, intractability of vomiting not specified, presence of nausea not specified, unspecified vomiting type- Primary documented in this encounter Care Teams Director Of Group Counseling Program Relationship Specialty Start Date End Date Kathy Miranda MD [address] [place] [address] PCP - General Internal Medicine 11/14/21 documented as of this encounter
--- OUTSIDE RECORDS SUMMARY | 2025-01-08 15:54 | XMS_ITS | Clinical Summary ---
Author Organization Patient Business Ser [facility] Address [address] [place] [address] Care Team Providers Care Scoop Machine Operator Name Role Phone Zee [place] Primary Care [...] from anxiety and stress Bipolar I disorder ([facility] V24, [facility] V28) Asthma 10/24/2015 Encounters Date Type Department Care Team Description 10/19/2024 10:30 AM EST Office Visit Gastroenterology - [address] [facility] [address] [place] [phone] Lesley Bojorquez MD Gastroesophageal reflux disease with esophagitis without hemorrhage (Primary Dx) from Last 3 Months Immunizations Name Administration Dates Next Due DTP 02/26/1998,1997,1997 DTaP (Infanrix) 6wks to less than 7yo 04/18/2002 ,11/08/1998 DTaP, IPV, Hib, Hepatitis B Combined (Vaxelis) 6wks to less than 5yo 11/08/1998,02/26/1998,1997,09/17 QDhB-PRD-QBT (Pentacel) 2mo to less than 5yo 11/08/1998,02/26/1998,1997,09/17 [...] GERD (gastroesophageal reflux disease) Bipolar 1 disorder ([facility] V24, [facility] V28) Family History Medical History Relation [...] Description 01/09/2025 3:30 PM EDT Office Visit [facility] Hematology Oncology [address] [place] [phone] Cristin Dutta MD [address] [place] [address] Health Maintenance Due Date Last Done Comments [...] * HIV Screening (01/27/2024) HIV Screening abstracted [facility] Provider MD HEALTH MAINTENANCE Final Result * Hepatitis C Screening (01/27/2024) Hepatitis C Screening abstracted [facility] Provider MD HEALTH MAINTENANCE Final Result * Gonorrhea/Chlamydia Screening (01/27/2024) Gonorrhea/Chla mydia Screening abstracted [facility] Provider MD HEALTH MAINTENANCE Final Result * Pap smear (10/14/2022) 10/14/2022 Narrative HISTORICAL TESTING LAB RESULTING AGENCY - 10/19/2022 3:21 PM EST [id number] THINPREP PAP, IMAGED: NEGATIVE FOR SQUAMOUS INTRAEPITHELIAL [...] Most Recently Relevant to Health Maintenance Insurance [facility] [place] Care Teams Scoop Machine Operator Relationship Specialty Start Date End Date Zee [place] PA [address] [place] [id number] PCP - General Perioperative Tech 12/11/24
--- OUTSIDE RECORDS SUMMARY | 2025-01-08 15:54 | XMS_ITS | Encounter Summary ---
Author Organization [facility] Address [facility] [place] [address] Care Team Providers Care Lgsw Name Role Phone Gaby-Audelia Quiroz MD Primary Care Provider Unavailable Teena Orozco MD Primary Care Provider UnavailRadha Orourke MD Primary Care Provider Unavailable Kathy Miranda MD Primary Care Provider + [phone] Reason for Visit * Reason Onset Date Comments refill request 04/10/2020 Encounter Details Date Type Department Care Team Description 04/10/2020 Refill OBGYN - [place] [address] [place] [address] Yaneth Casarez [facility] [address] [place] [address] refill request Social History Tobacco Use Types Packs/Day Years Used Date Smoking Tobacco: Never Smokeless Tobacco: Never Alcohol Use Standard Drinks/Week Comments No 0 (1 standard drink = 0.6 oz pur e alcohol) Sex Assigned at Date Recorded Not on file documented as of this encounter Miscellaneous Notes * Telephone Encounter - Estela Hebert - 04/10/2020 2:28 PM EDT WHEN WAS THE PATIENTS LAST ANNUAL COMPLIANCE REVIEW OFFICER EXAM? 01/26/2019 Does patient have an upcoming appointment? Yes 06/12/2020 (THE MEDICATION REQUESTED IS ON THE MED LIST ABOVE) Did you check the Pharmacy information above?: YES Indicate how soon the patient needs the script: BY THE END OF THE DAY Patient would like script to be: E-PRESCRIBED/FAXED TO PHARMACY Is the doctor here today?: NO Can the message wait until the doctor returns?: NO Has the patient been told that the prescription will not be filled until the end of the day? NO Payor: [facility]/SubtextualO FFS / Plan: HMO $30 ALMENA [id number] / Product Type: HMO PRE-PAID documented in this encounter Plan of Treatment Not on file documented as of this encounter Visit Diagnoses Not on filedocumented in this encounter Care Teams Lgsw Relationship Specialty Start Date End Date [place]-Audelia Quiroz MD PCP - General Internal Medicine 08/21/1511/28/20 Teena Orozco MD PCP - General Internal Medicine 11/29/20 03/17/21 Radha Zhang MD PCP - General Internal Medicine 03/18/2110/22 Kathy Miranda MD [address] [place] [address] PCP - General Internal Medicine 11/14/21 documented as of this encounter
--- OUTSIDE RECORDS SUMMARY | 2025-01-08 15:54 | XMS_ITS | Encounter Summary ---
Author Organization [facility] Address [address] [place] [address] Care Team Providers Care Adult Ministries Director Name Role Phone Gaby-Audelia Quiroz MD Primary Care Provider Unavailable Teena Orozco MD Primary Care Provider Unavaila Rahda Martinez MD Primary Care Provider Unavailable Kathy Miranda MD Primary Care Provider + [phone] Reason for Visit * Reason Comments E-prescribe Rx Request Encounter Details Date Type Department Care Team Description 09/05/2018 Refill Medicine/Pediatrics - [address] [address] Jannie Moise PA-C E-prescribe Rx Request Social History Tobacco Use Types Packs/Day Years Used Date Smoking Tobacco: Never Smokeless Tobacco: Never Alcohol Use Standard Drinks/Week Comments No 0 (1 standard drink = 0.6 oz pur e alcohol) Sex Assigned at Date Recorded Not on file documented as of this encounter Miscellaneous Notes * Telephone Encounter - Ave Armstrong R.N. - 09/05/2018 12:46 PM EST Last ov;06/30/18 Last refill:06/30/18 med discontiniued Order denied * Telephone Encounter - Lyudmila Timmons - 09/05/2018 11:03 AM EST Patient would like script to be: E-PRESCRIBED/FAXED TO PHARMACY WHEN WAS THE PATIENT'S LAST APPOINTMENT IN ADULT MEDICINE? [id number] WHEN WAS THE LAST TIME THE PATIENT SAW THEIR PCP? [phone] Does patient have an upcoming appointment? no (THE MEDICATION REQUESTED IS ON THE MED [...] N/A Patients current insurance carrier is: Payor: [facility]/paymio FFS / Plan: paymio $30 ATHENS [id number] / ProductType: paymio PRE-PAID documented in this encounter Plan of Treatment Not on file documented as of this encounter Visit Diagnoses Not on filedocumented in this encounter Care Teams Adult Ministries Director Relationship Specialty Start Date End Date [place]-Audelia Quiroz MD PCP - General Internal Medicine 08/21/1511/28/20 Teena Orozco MD PCP - General Internal Medicine 11/29/20 03/17/21 Radha Zhang MD PCP - General Internal Medicine 03/18/2110/22 Kathy Miranda MD [address] [place] [address] PCP - General Internal Medicine 11/14/21 documented as of this encounter
--- OUTSIDE RECORDS SUMMARY | 2025-01-08 15:54 | XMS_ITS | Encounter Summary ---
Author Organization [facility] Address [address] [place] [address] Care Team Providers Care Exhibition Specialist Name Role Phone Audelia Aguirre MD Primary Care Provider Unavailable Teena Orozco MD Primary Care Provider UnavailRadha Orourke MD Primary Care Provider Unavailable Kathy Miranda MD Primary Care Provider [phone] Encounter Details Date Type Department Care Team Description 07/18/2018 Release of Information Medical Records [address] [place] [id number] Abstract, Provider Social History Tobacco Use Types [...] on filedocumented in this encounter Care Teams Exhibition Specialist Relationship Specialty Start Date End Date Audelia Aguirre MD PCP - General Internal Medicine 08/21/1511/28/20 Teena Orozco MD PCP - General Internal Medicine 11/29/20 03/17/21 Radha Zhang MD PCP - General Internal Medicine 03/18/2110/22 Kathy Miranda MD [address] [place] [address] PCP - General Internal Medicine 11/14/21 documented as of this encounter
--- OUTSIDE RECORDS SUMMARY | 2025-01-08 15:54 | XMS_ITS | Encounter Summary ---
Author Organization [facility] Address [address] [place] [address] Care Team Providers Care Digital Marketing Consultant Name Role Phone Teena Orozco MD Primary Care Provider UnavailRadha Orourke MD Primary Care Provider Unavailable Kathy Miranda MD Primary Care Provider Encounter Details Date Type Department Care Team Description 12/03/2020 [facility] Medical Records [address] [place], [place] [id number] [place] [address] Social History Tobacco Use Types Packs/Day Years [...] on filedocumented in this encounter Care Teams Digital Marketing Consultant Relationship Specialty Start Date End Date Teena Orozco MD PCP - General Internal Medicine 11/29/20 03/17/21 Radha Zhang MD PCP - General Internal Medicine 03/18/2110/22 Kathy Miranda MD [address] [place] [address] PCP - General Internal Medicine 11/14/21 documented as of this encounter
--- OUTSIDE RECORDS SUMMARY | 2025-01-08 15:54 | XMS_ITS | Clinical Summary ---
Author Organization [facility] Address [address] [place] [address] Care Team Providers Care Dental Lab Technician Name Role Phone Kathy Miranda MD Primary Care Provider + [phone] Allergies No known active allergies Medications Medication Sig Dispensed Refills Start Date End Date Status SPACER DEVICE-ADULT Inhale 1 Device into the lungs as needed (With inhaler). 1 Device 0 06/01/2016 Active fluoxetine (PROZAC) 40 MG capsule TAKE 1 CAPSULE BY MOUTH DAILY. TAKE WITH 20 MG TABLET FOR 60 MG TOTAL DAILY. 30 Cap 0 11/29/2020 Active albuterol (PROVENTIL) (2.5 MG/3ML) 0.083% nebulizer solution Take 1 Vial by nebulization every 4 hours as needed for Wheezing for up to 180 days. 50 Vial 0 02/20/2021 Active ALBUTEROL SULFATE 108 (90 Base) MCG/ACT Aero Soln Inhale 2 Puffs into the lungs every 4 hours as needed for Cough or Wheezing. 1 Inhaler 1 02/21/2021 Active Latuda 40 MG Tab TAKE ONE TABLET BY MOUTH DAILY WITH DINNER*KASSANDRA TRISTAN MD 0 05/10/2021 Active clonazepam (KLONOPIN) 0.5 MG tablet TAKE 1/2 TABLET BY MOUTH TWICE A DAY 0 05/07/2021 Active hydrOXYzine (ATARAX) 10 MG tablet TAKE 1 TAB BY MOUTH EVERY DAY NEEDED FOR ANXIETY AND 1 TO 3 TABS AT BEDTIME NEEDED FOR SLEEP 0 06/23/2021 Active norelgestromin-eth inyl estradiol (ORTHO EVRA) 150-35 MCG/24HR Place 1 Patch onto the skin once a week. 0 Active omeprazole (PRILOSEC) 20 MG capsule Take 1 Capsule by mouth daily for 360 days. 30 Capsule 5 11/26/2021 Active fluticasone (Flovent HFA) 110 MCG/ACT inhaler Inhale 2 Puffs into the lungs 2 times daily for 360 days. 120 Act 1 01/28/2022 Active buPROPion (WELLBUTRIN XL) 150 MG 24 hr tablet Take 1 Tablet by mouth every morning. 0 Active norgestimate-ethin yl estradiol (ORTHO-CYCLEN) 0.25-35 MG-MCG per tablet Take 1 Tablet by mouth daily. 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 Overview: Seen by Dr Casarez- ct negative, posible from anxiety and stress Bipolar I disorder 12/16/2020 Asthma 10/24/2015 Anxiety Major depression Resolved Problems Problem Noted Date Resolved Date Receptive-expressive language delay 10/24/2015 11/27/2016 Immunizations Name Administration Dates Next Due COVID-19 ([place]) 10/28/2020 COVID-19 (JOANNA Malagon) PT REPORTED 10/28/2020 DTP 02/26/1998,1997,1997 DTaP 04/18/2002,11/08/1998 Ibzc-vuw-lvn-hepb Combined 11/08/1998,,1997,09/17 Gardasil 9 (Hpv) 06/30/2018,11/27/2016 HIB 11/08/1998, 8,1997,09/17 HPV (Gardasil) 11/25/2015 Hepatitis B-3 Dose (<19yrs) 05/09/1998, 8,1997 Influenza (> 6 Months) 06/01/2016,06/28/2015 Influenza Vaccine-preservati ve Free-quadrivalent 4 Years 06/30/2018 MMR (Rtwzlwp-Ituxj-Bavrxvc) 04/18/2002, 8 Meningococcal (Menactra) 06/18/2014,06/24/2009 PPD-Negative Response(External) 06/28/2015 Pneumoccoccal(Adult) Polysac charide PPSV23 11/25/2015 Polio (IPV) 04/18/2002, 8,1997,09/17 Tdap 12/29/2018,06/24/2009 Varicella 04/11/2008,07/29/1998 Family History Medical History Relation Name Comments crohns Brother high cholesterol Father lung disease Maternal Grandmother emphyse ma / crohns Mother high cholestero l kidney cancer Paternal Grandfather diabet es/ HTN CA Breast Paternal Grandmother Stroke Paternal Grandmother age 50' s aspergers Sister CA Colon Negative Hx CA Ovarian Negative Hx CA of Pancreas Negative Hx Cervical Cancer Negative Hx Uterine Cancer Negative Hx Relation Name Status Comments Brother Father Maternal Grandmother Mother Paternal Grandfather Paternal Grandmother Sister Social History Tobacco Use Types Packs/Day Years Used Date Smoking Tobacco: Never Smokeless Tobacco: Never Tobacco Cessation:Counseling Given: Not Answered Alcohol Use Standard Drinks/Week Comments Yes 0 (1 standard drink = 0.6 oz pur e alcohol) social Sex Assigned at Date Recorded Not on file Last Filed Vital Signs Vital Sign Reading Time Taken Comments Blood Pressure 130/82 01/27/2024 1:31 PM EDT Pulse 92 01/27/2024 1:31 PM EDT Temperature 36.2 ??C (97.2 ??F) 11/26/2021 2:50 PM ED T Respiratory Rate 16 01/27/2024 1:31 PM EDT Oxygen Saturation 96% 12/27/2020 3:48 PM EDT Inhaled Oxygen Concentration - - Weight 120 kg (264 lb 9.6 oz) 01/27/2024 1:31 PM EDT Height 162.6 cm (5' 4 ) 01/27/2024 1:31 PM EDT Body Mass Index 45.42 01/27/2024 1:31 PM EDT Plan of Treatment Health Maintenance Due Date Last Done Comments Covid-19 Vaccine (2022-09 4 season) 2024 09/05/2021, 10/28/2020, 10/28/2020 BMI CHECK/ADVISE 08/23/2024 01/27/2024, 01/2024, 10/14/2022, Additional history exists DEPRESSION SCREENING/FOLLOWUP 08/23/2024, 11/02/2020, 03/11/2020, Additional history exists SOCIAL NEEDS SCREENING 08/23/2024 INFLUENZA (Season Ended) 2025 018, 06/01/2016, 06/28/2015 CERVICAL CANCER SCREENING 10/14/2025 10/14/2022, 01/2019 BASELINE HEALTH EXAM 18-39 02/28/202602/28, 12/29/2018, 12/29/2018, Additional history exists CHOLESTEROL SCREENING 11/26/2026 11/26/2021 , 02/28/2021, 12/29/2018, Additional history exists DTAP/TDAP/TD (8 - Td or Tdap) 12/29/2028, 06/24/2009, 04/18/2002, Additional history exists PNEUMOCOCCAL VACCINE FOR HIG H RISK PATIENTS (#2) 2062 11/25/2015 Care Teams Dental Lab Technician Relationship Specialty Start Date End Date Kathy Miranda MD [address] [place] [address] PCP - General Internal Medicine 11/14/21
--- OUTSIDE RECORDS SUMMARY | 2025-01-08 15:54 | XMS_ITS | Clinical Summary ---
Author Organization [facility] Address [address] [place] [address] Care Team Providers Care Plate Mill Hand Name Role Phone Teena Orozco MD Primary [...] age to complete this topic Care Teams Plate Mill Hand Relationship Specialty Start Date End Date Teena Orozco MD PCP - General Internal Medicine 01/06/21
--- OUTSIDE RECORDS SUMMARY | 2025-01-08 15:54 | XMS_ITS | Encounter Summary ---
Author Organization [facility] Address [address] [place] [address] Phone Care Team Providers Care Citrix Lead Name Role Phone Cristina Franks MD Primary Care Provider Encounter Details Date Type Department Care Team (Late st Contact Info) Description 01/09/2018 Conversion Encounter [facility] [address] [place] [address] Cristina Franks MD [address] [place] [address] Social History Tobacco Use Types Packs/Day Years [...] on filedocumented in this encounter Care Teams Citrix Lead Relationship Specialty Start Date End Date Cristina Franks MD [address] [place] [address] PCP - General 12/29/17 10/03/24 documented as of this encounter
--- OUTSIDE RECORDS SUMMARY | 2025-01-08 15:54 | XMS_ITS | Encounter Summary ---
Author Organization [facility] Address [facility] [place] [address] Care Team Providers Care Pneumatic Systems Operator Name Role Phone Gaby-Audelia Quiroz MD Primary Care Provider Unavailable Teena Orozco MD Primary Care Provider UnavailRadha Orourke MD Primary Care Provider Unavailable Kathy Miranda MD Primary Care Provider + [phone] Reason for Visit * Reason Onset Date Comments Appointment-Internal Referral 07/18/2018 Encounter Details Date Type Department Care Team Description 07/18/2018 Telephone [facility] [address] [place] [address] Evelia Villegas CNM Appointment-Internal Referral Social History Tobacco Use Types Packs/Day Years Used Date Smoking Tobacco: Never Smokeless Tobacco: Never Alcohol Use Standard Drinks/Week Comments No 0 (1 standard drink = 0.6 oz pur e alcohol) Sex Assigned at Date Recorded Not on file documented as of this encounter Miscellaneous Notes * Telephone Encounter - Letitia Kidd - 07/18/2018 12:47 PM EST After 2 calls and a letter with no response put on the waitlist and FYI to provider documented in this encounter Plan of Treatment Not on file documented as of this encounter Visit Diagnoses Not on filedocumented in this encounter Care Teams Pneumatic Systems Operator Relationship Specialty Start Date End Date Audelia Aguirre MD PCP - General Internal Medicine 08/21/1511/28/20 Teena Orozco MD PCP - General Internal Medicine 11/29/20 03/17/21 Radha Zhang MD PCP - General Internal Medicine 03/18/2110/22 Kathy Miranda MD [address] [place] [address] PCP - General Internal Medicine 11/14/21 documented as of this encounter
--- OUTSIDE RECORDS SUMMARY | 2025-01-08 15:54 | XMS_ITS | Encounter Summary ---
Author Organization [facility] Address [address] [place] [address] Care Team Providers Care Press Operator Automatic Name Role Phone Audelia Aguirre MD Primary Care Provider Unavailable Teena Orozco MD Primary Care Provider UnavailRadha Orourke MD Primary Care Provider Unavailable Kathy Miranda MD Primary Care Provider [phone] Encounter Details Date Type Department Care Team Description 11/18/2016 Release of Information Medical Records [address] [place] [id number] Abstract, Provider Social History Tobacco Use Types [...] on filedocumented in this encounter Care Teams Press Operator Automatic Relationship Specialty Start Date End Date Audelia Aguirre MD PCP - General Internal Medicine 08/21/1511/28/20 Teena Orozco MD PCP - General Internal Medicine 11/29/20 03/17/21 Radha Zhang MD PCP - General Internal Medicine 03/18/2110/22 Kathy Miranda MD [address] [place] [address] PCP - General Internal Medicine 11/14/21 documented as of this encounter
--- OUTSIDE RECORDS SUMMARY | 2025-01-08 15:54 | XMS_ITS | Encounter Summary ---
Author Organization [facility] Address [address] [place] [address] Care Team Providers Care Booth Usher Name Role Phone [place]-Audelia Quiroz MD Primary Care Provider Unavailable Teena Orozco MD Primary Care Provider UnavailRadha Orourke MD Primary Care Provider Unavailable Kathy Miranda MD Primary Care Provider + [phone] Reason for Visit * Reason Comments E-prescribe Rx Request Encounter Details Date Type Department Care Team Description 02/14/2020 Refill OBGYN - [place] [address] [place] [address] Solitario Garcia, [facility] [address] [place] [address] E-prescribe Rx Request Social History Tobacco Use Types Packs/Day Years Used Date Smoking Tobacco: Never Smokeless Tobacco: Never Alcohol Use Standard Drinks/Week Comments No 0 (1 standard drink = 0.6 oz pur e alcohol) Sex Assigned at Date Recorded Not on file documented as of this encounter Miscellaneous Notes * Telephone Encounter - Radhika Duran R.N. - 02/14/2020 8:49 AM EDT Letter sent. * Telephone Encounter - Audelia Downey - 02/14/2020 7:53 AM EDT WHEN WAS THE PATIENTS LAST ANNUAL PHARMACIST CRITICAL CARE EXAM? 01/26/19 Does patient have an upcoming appointment? No (THE MEDICATION REQUESTED IS ON THE MED LIST ABOVE) Did you check the Pharmacy information above?: NO Indicate how soon the patient needs the script: OK FOR NEXT DAY Patient would like script to be: E-PRESCRIBED/FAXED TO PHARMACY Is the doctor here today?: NO Can the message wait until the doctor returns?: NO Has the patient been told that the prescription will not be filled until the end of the day? NO Payor: [employer] FFS / Plan: HMO $30 [place] [id number] / Product Type: HMO PRE-PAID documented in this encounter Plan of Treatment Not on file documented as of this encounter Visit Diagnoses Not on filedocumented in this encounter Care Teams Booth Usher Relationship Specialty Start Date End Date [place]-Audelia Quiroz MD PCP - General Internal Medicine 08/21/1511/28/20 Teena Orozco MD PCP - General Internal Medicine 11/29/20 03/17/21 Radha Zhang MD PCP - General Internal Medicine 03/18/2110/22 Kathy Miranda MD [address] [place] [id number] PCP - General Internal Medicine 11/14/21 documented as of this encounter
--- OUTSIDE RECORDS SUMMARY | 2025-01-08 15:54 | XMS_ITS | Clinical Summary ---
Author Organization [facility] Address [address] [place] [address] Phone Care Team Providers Care Forensic Structural Engineer Name Role Phone Unavailable Primary Care [...]
--- OUTSIDE RECORDS SUMMARY | 2025-01-08 15:54 | XMS_ITS | Encounter Summary ---
Author Organization [facility] Address [address] [place] [address] Care Team Providers Care Film Reader Name Role Phone Audelia Aguirre MD Primary Care Provider Unavailable Teena Orozco MD Primary Care Provider UnavailRadha Orourke MD Primary Care Provider Unavailable Kathy Miranda MD Primary Care Provider [phone] Encounter Details Date Type Department Care Team Description 06/04/2016 Release of Information Medical Records [address] [place] [id number] Abstract, Provider Social History Tobacco Use Types [...] on filedocumented in this encounter Care Teams Film Reader Relationship Specialty Start Date End Date Audelia Aguirre MD PCP - General Internal Medicine 08/21/1511/28/20 Teena Orozco MD PCP - General Internal Medicine 11/29/20 03/17/21 Radha Zhang MD PCP - General Internal Medicine 03/18/2110/22 Kathy Miranda MD [address] [place] [address] PCP - General Internal Medicine 11/14/21 documented as of this encounter
== END 2025-01-08 15:52 | disposition home or self-care (01) ==
LOC: HO.LAB 15:51
PROVIDERS: Visit Provider Internal Medicine Endocrinology, Diabetes & Metabolism
DX: Z13.89 Encounter for screening for other disorder (principal)

== ENCOUNTER 2025-01-17 15:28 | Outpatient (REF) | payer BC, MEDICAID, SELFPAY ==
[2025-01-17 17:34] LABS: Anion Gap 15 (12-20); Blood Urea Nitrogen 17 mg/dL (9-16); Calcium 9.7 mg/dL (8.4-10.2); Carbon Dioxide 28 mmol/L (22-29); Chloride 103 mmol/L (96-108); Estimated Glomerular Filt Rate 58; Glucose Random 74 mg/dL (60-115); Potassium 4.6 mmol/L (3.3-5.1); Sodium 141 mmol/L (135-145)
[2025-01-18 03:58] LABS: DHEA Sulfate 357 mcg/dL (14-349)
[2025-02-05 12:23] LABS: Saliva Cortisol 1.15 mcg/dL
== END 2025-01-17 15:29 | disposition home or self-care (01) ==
LOC: HO.LAB 15:28
PROVIDERS: PCP Physician Assistant; Visit Provider Internal Medicine Endocrinology, Diabetes & Metabolism
DX: E28.2 Polycystic ovarian syndrome (principal)
CPT/HCPCS: 36415; 80048; 82530; 82627

== ENCOUNTER 2025-02-14 12:22 | Outpatient (AMB) | payer BC, MEDICAID, SELFPAY ==
--- NOTE | 2025-02-14 12:31 | A.OFFVIS_ITS ---
VS Expanded 02/14/25 12:33 02/14/25 12:50 Height 5 ft 4 in 5 ft 4 in Weight 257 lb 0.944 oz 257 lb BMI 44.1 44.1 Intake Visit Reasons: Polycystic ovarian syndrome Allergies No Known Allergies Allergy (Verified 01/02/25 15:29) Nutrition Presentation Details: Pt presents for MNT for obesity with PCOS Typical meal intake 8:39 am breakfast sandwich sausage/egg and cheese , water sweetened creamers lunch : chicken broccoli, rice/ steak/noodles/ hibachi dinner: frozen pizza 5-6 pm night chips/water 2%milk food frequency fruit: 0/d vegetables: 2-3 x/wk fish: 1/month physical activity: 2 miles 3 x/wk early arthritis of knees getting b12 shots monthly d/t deficiency BS Monitoring Most Recent Diabetes Results: Creatinine, (0.5-1.4) 1.13 mg/dL 01/17/25 BUN, (9-16) 17 mg/dL H 01/17/25 Sodium, (135-145) 141 mmol/L 01/17/25 Potassium, (3.3-5.1) 4.6 mmol/L 01/17/25 Chloride, (96-108) 103 mmol/L 01/17/25 Carbon Dioxide, (22-29) 28 mmol/L 01/17/25 Calcium, (8.4-10.2) 9.7 mg/dL 01/17/25 BMS-Dpheegp-Gg.Jeor Equation Height: 5 ft 4 in Weight: 257 lb Resting Metabolic Rate: 1886.73 Calculated Activity Level: Sedentary Calories Needed to Maintain Weight: 2264.08 Diagnosis Nutrition problem #1: food nutri know defi As related to (etiology) #1: diagnosis As evidenced by (sign/symptom) #1: knowledge deficit of diet Monitoring/Goals Nutrition problem monitoring: level of knowledge/skill Learning/Education Readiness to learn: good Stages of change: preparation [facility] Medical History (Updated 02/27/25 @ 20:[address], LDN) Polycystic ovary Surgical History No pertinent past surgical history Family History Mother Hypercholesteremia Father Hypercholesteremia Social History Alcohol intake: current Alcohol intake frequency: a few times a month e-Cigarette/Vaping Use: Currently Using Substance Use Type: Marijuana Assessment & Plan Assessment & Plan (1) Morbid obesity with BMI of 40.0-44.9, adult: Comment: w PCOS Code(s): E66.01 - Morbid (severe) obesity due to excess calories; Z68.41 - Body mass index [BMI] 40.0-44.9, adult Category: Medical Plan: Wt: 117 Kg ( 03/16 ) Est kcal needs as per MSJ: 2300 (40% carb, 30% protein/fat) Est fluid needs as per 25-30 ml/d: 3500 Est prot per day as per 1 g/kg bw: 120 Recommend fiber intake : 8-10 g per day and gradually increase to 25-28 g per day for women and 35-38 g for men or as tolerated Recommend sodium intake per day : less than 2300 mg Educated patient on: ( R = reviewed V = verbalizes understanding N/R = needs review N/A = not applicable * Food sources of carbohydrate, adequate serving sizes and its role in various health conditions: R * Differences between complex carbohydrates a simple carbohydrates, role of fiber in diet: R * Lean protein sources of foods: R * Differences between types of fats and role in diet (mono on saturated fat fatty acids, saturated fatty acids, trans fats): R V N/R * Food sources of sodium in salt and healthy modifications for heart health in kidney health: R V R/V * Vitamins and minerals: R V N/R * Healthy plate method concept: R * Physical activity: Benefits a precaution: R * Patient Instructions: Practice mindful eating Choose complex carbohydrates Work on reducing total carb per meal to 60 g or less per meal, 3 meals/d and 0- 20 g as snack 1-2 /day keep hydrated, choosing water, herb/fruit flavor water, low in sugar Coding Level of Care Code Nutr Indiv Intake (59356) Diagnoses Morbid obesity with BMI of 40.0-44.9, adult E66.01; Z68.41 Time Spent (min) 30
[2025-02-14 12:33] VITALS: BMI 44.1
--- OUTSIDE RECORDS SUMMARY | 2025-02-14 14:24 | XMS_ITS | Clinical Summary ---
Author Organization [facility] Address [address] [place] [address] Care Team Providers Care Matrix Drier Tender Name Role Phone Teena Orozco MD Primary [...] 98 01/27/2021 3:05 PM EDT Temperature 36.2 C (97.1 F) 01/27/2021 3:05 PM EDT Respiratory Rate - - Oxygen Saturation 97% [...] Cancer Screening (Pap Smear) 2018 Influenza Vaccine (Season Ended) 2025 06/30/2018, 06/01/2016, 06/28/2015, Additional history exists DTap / Tdap / Td (8 - Td or Tdap) 12/29/2028 12/29/2018, 06/24/2009, 04/18/2002, Additional history exists RSV Ped < 20 months Aged Out No longe r eligible based on patient's age to complete this topic Care Teams Matrix Drier Tender Relationship Specialty Start Date End Date Teena Orozco MD PCP - General Internal Medicine 01/06/21
[2025-02-27 20:21] VITALS: BMI 44.1
== END 2025-02-14 13:09 | disposition home or self-care (01) ==
LOC: HO.ENCR 12:23
PROVIDERS: PCP Physician Assistant; Visit Provider Dietitian, Registered
DX: E66.01 Morbid (severe) obesity due to excess calories (principal); Z68.41 Body mass index [BMI] 40.0-44.9, adult

== ENCOUNTER → 2025-02-14 12:22 | Outpatient (BNVA) | payer BC, MEDICAID, SELFPAY | PROVIDERS: PCP Physician Assistant; Visit Provider Dietitian, Registered | DX: E66.01 Morbid (severe) obesity due to excess calories (principal); Z68.41 Body mass index [BMI] 40.0-44.9, adult | CPT/HCPCS: 97802 ==

== ENCOUNTER 2025-02-15 08:44 | Outpatient (REF) | payer BC, MEDICAID, SELFPAY ==
--- OUTSIDE RECORDS SUMMARY | 2025-02-15 09:16 | XMS_ITS | Encounter Summary ---
Author Organization [facility] Address [address] [place] [address] Care Team Providers Care Memorial Marker Designer Name Role Phone Love Aguirre MD Primary Care Provider Unavailable Teena rOozco MD Primary Care Provider Unavaila Radha Martinez MD Primary Care Provider Unavailable Kathy Miranda MD Primary Care Provider + [phone] Reason for Referral * EXTERNAL (Routine) - Authorized/Booked Specialty Diagnoses / Procedures Referred By Scarlet shultz Referred To Contact Gastroenterology Procedures REFERRAL TO GASTROENTEROLOGY Love Aguirre MD [address] [place] [address] Oni Lebron MD [address] [place] [id number] Referral ID Status Reason Start Date Expiration Date V isits Requested Visits Authorized SEE REVIEW 05/17/2019 Authorized/ Booked 05/17/2019 08/17/2019 1 1 Reason for Visit * Reason Onset Date Comments Human Resources Trainer Feedback 05/17/2019 Dr. Lebron Encounter Details Date Type Department Care Team Description 05/17/2019 Telephone Adult Medicine - [place] [address] [place] [address] Love Aguirre MD Human Resources Trainer Feedback (Dr. Lebron) Social History Tobacco Use Types Packs/Day Years Used Date Smoking Tobacco: Never Smokeless Tobacco: Never Alcohol Use Standard Drinks/Week Comments No 0 (1 standard drink = 0.6 oz pur e alcohol) Sex Assigned at Date Recorded Not on file documented as of this encounter Miscellaneous Notes * Telephone Encounter - Joshua Alvares - 05/17/2019 4:03 PM EDT [facility] Specialty Referral Status [ Save Response to Batch ] Request: [id number] [facility] Trace #: [id number] Patient: ROYAL DAVIS Subscriber: RAISA J JAMES Submitter : LOVE LATHAM Submitter Type: Provider : 1995 Referral (#[id number]) Specialty Care Review Type: Initial Certification Status : Certified in total Service Type : Medical Care Place Of Service : Office Visits : 6 Service Date : 05/17/2019-05/16/2020 Service Providers Provider Name ID Provider Type Specialty MD ONI LEBRON NPI : [id number] Performing Specialist Please review this patients new [...] Payor: -[place]/HMO FFS / Plan: HMO $30 [place] [id number] / Product Type: HMO PRE-PAID Effective 05/23/09: [facility] will not retro referral requests over 90 [...] insurance must be obtained and registered in [facility] or their referral can not be [...] Is this visit:Initial Visit Address of Specialist: [address] [place] [address] Phone # of Specialist: [phone] Fax #: (if applicable): Does patient have an appointment scheduled?: YES Date of appointment- (including a retro-request): 06/16/19 Is this appointment related to: Not MVA, WC or Surgery related documented in this encounter Plan of Treatment Not on file documented as of this encounter Visit Diagnoses Not on filedocumented in this encounter Care Teams Memorial Marker Designer Relationship Specialty Start Date End Date [place]paugh-Love Latham MD PCP - General Internal Medicine 08/21/1511/28/20 Teena Orozco MD PCP - General Internal Medicine 11/29/20 03/17/21 Radha Zhang MD PCP - General Internal Medicine 03/18/2110/22 Kathy Miranda MD [facility] [place] [address] PCP - General Internal Medicine 11/14/21 documented as of this encounter
[2025-02-19 16:04] LABS: Adrenocorticotropic Hormone 16 pg/mL (6-50)
== END 2025-02-15 08:45 | disposition home or self-care (01) ==
LOC: HO.LAB 08:44
PROVIDERS: PCP Physician Assistant; Visit Provider Internal Medicine Endocrinology, Diabetes & Metabolism
DX: E28.2 Polycystic ovarian syndrome (principal)
CPT/HCPCS: 36415; 82024

== ENCOUNTER 2025-02-17 | Outpatient (REF) | payer BC, MEDICAID, SELFPAY ==
[2025-02-17 12:30] LABS: Total Volume 24 Hour Urine 1300 mL
[2025-02-17 12:44] LABS: Creatinine, 24Hr Urine 1.8 G/Day (1.0-2.0); Creatinine, mg/dL 136.61
[2025-02-26 01:54] LABS: Cortisol Free, 24 Hr Urine 22.3 mcg/24 h (4.0-50.0); Creatinine, 24 Hr Urine 1.86 g/24 h (0.50-2.15); Total Volume, 24 Hr Urine 1300 mL
[2025-03-02 03:42] LABS: Saliva Cortisol 0.12 mcg/dL
== END 2025-02-17 00:01 | disposition home or self-care (01) ==
LOC: HO.LNP
PROVIDERS: Visit Provider Internal Medicine Endocrinology, Diabetes & Metabolism
DX: E28.2 Polycystic ovarian syndrome (principal)
CPT/HCPCS: 82530; 82570

== ENCOUNTER 2025-02-28 14:48 | Outpatient (AMB) | payer BC, MEDICAID, SELFPAY ==
--- NOTE | 2025-02-28 14:57 | MHC.OFFVIS ---
Vital Signs 02/28/25 15:00 Height 5 ft 4 in Weight 258 lb 9.636 oz BMI 44.4 BP 114/76 Blood Pressure Location Lt brachial Position Sitting Pulse 106 H Pulse Source Pulse Oximeter Pulse Oximetry (%) 97 Oxygen Delivery Method Room Air Intake Visit Reasons: f/u polycystic ovarian syndrome Intake Note: Patient present for PCOS follow up. Copyright Expert Required: No Accompanied by: Self / Same As Patient Allergies No Known Allergies Allergy (Verified 02/28/25 15:01) Medication List - Last Reconciled 02/28/25 by Glenn Perez MD bupropion HCl XL (Wellbutrin XL) 300 mg PO QAM bupropion HCl XL (Wellbutrin XL) 150 mg PO QAM clonidine HCl 0.1 mg PO BEDTIME fluticasone propionate 110 mcg/actuation 1 puff inhalation BID lurasidone (Latuda) 60 mg PO DAILY norgestimate-ethinyl estradiol 0.25-0.035 mg (Sprintec (28)) 1 tab PO DAILY spironolactone 100 mg PO DAILY HPI Comments Details: The patient is a 29-year-old female presenting with concerns regarding suspected Polycystic Ovarian Syndrome (PCOS). Her menstrual periods have been regular on control. She reports facial hair growth on her chin, managed by plucking. 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 She has experienced chronic weight issues despite losing 35 pounds since 2022 through lifestyle changes. A history of metformin use was noted for weight loss, which was discontinued due to side effects. The patient has a history of Bipolar Disorder, Type I, and no known personal history of diabetes. - Metformin: Previously used for weight loss; discontinued due to gastrointestinal side effects. - Corticosteroids: Elevation in cortisol noted, linked to ongoing evaluation for possible Ronnie's syndrome but could be due to control pills raising CBG. Menarche was age 11. Menses have been regular . on BCP OCP use: On Sprintec Metformin use: Took but had diarrhea Weight gain: Chronic problem. Lost 35 lbs since 2022 . Calorie deficit and exercise more . Never took wt loss medications. The patient has been practicing a calorie deficit diet since 2022, which has contributed to her weight loss. There is no mention of specific dietary preferences, food allergies, or intolerances. Emphasis on calorie reduction and general diet control is indicated as part of her weight management strategy. Hirsutism/hyperandrogenism: Chin, plucks to get rid of. Is bothersome to treat Trying to conceive/clomiphene: No Ovarian U/S: No T2DM or acanthosis: No -paternal gramndfather Snores at night - seeing sleep specialist - Endocrine System: Reports irregularities possibly indicative of PCOS, facial hair. - Reproductive System: Reports regular periods due to control; denies current ovulatory concerns. - Gastrointestinal System: Reports past metformin use, associated diarrhea. - Cardiovascular/Respiratory Systems: Denies snoring considerations; referred for possible sleep apnea. - Neurological/Psychiatric: Reports previous psychosis, diagnosed with Bipolar Disorder, Type I; no current neuropsychiatric issues mentioned. Lipids: [] BP: [] Labs: Testosterone equals 30. Normal prolactin, normal TSH, normal 17 hydroxy progesterone level. Workup for Ronnie's showed elevated midnight salivary cortisol and slightly elevated 24 hour urine free cortisol but repeat 24 hour urine cortisol was normal The patient is a 29-year-old female presenting with concerns regarding potential [place]'s Syndrome and Polycystic Ovary Syndrome (PCOS). The patient underwent a 24-hour urine test which initially showed slightly elevated cortisol levels, but a repeat test returned normal results. The salivary cortisol test was elevated, raising concerns for [place]'s Syndrome, although potential contamination was considered. The ACTH level was normal, which does not rule out Ronnie's Syndrome, as pituitary adenomas can still be present. The patient has a history of slightly elevated testosterone and DHEAS levels, consistent with PCOS. The 17-hydroxyprogesterone level was normal, ruling out congenital adrenal hyperplasia. The patient reports changes in chin hair growth, which has improved with spironolactone treatment. - Spironolactone: Used for managing hirsutism, with noted improvement in chin hair growth. [facility] Medical History (Updated 02/27/25 @ 20:[address], LDN) Polycystic ovary Surgical History No pertinent past surgical history Family History Mother Hypercholesteremia Father Hypercholesteremia Social History (Reviewed 07/09/25 @ 15:01 by ANIL Severino Alcohol intake: current Alcohol intake frequency: a few times a month e-Cigarette/Vaping Use: Currently Using Substance Use Type: Marijuana Physical Exam Vital Signs: Last Vital Signs Pulse 106 H 02/28/25 15:00 BP 114/76 02/28/25 15:00 Pulse Ox 97 02/28/25 15:00 Oxygen Delivery Method Room Air 02/28/25 15:00 BMI result Body Mass Index 44.4 Assessment & Plan Assessment & Plan (1) Polycystic ovary: Code(s): E28.2 - Polycystic ovarian syndrome Category: Medical Plan: This is a 29-year-old female with workup consistent with PCOS. We will complete workup by checking for adrenal tumor . 1. [place]'s Syndrome The initial 24-hour urine cortisol was slightly elevated, but subsequent tests were normal. The salivary cortisol was elevated, raising concerns for [place]'s Syndrome. The ACTH level was normal, which does not exclude the possibility of a pituitary adenoma. Further testing, including a repeat salivary cortisol test, is pending. If results remain inconclusive, referral to a specialist in [place]'s Syndrome may be considered. We may also consider doing a 1 mg dexamethasone suppression test but will require discontinuation of the control pill for 6-8 weeks 2. Polycystic Ovary Syndrome PCOS) The patient has slightly elevated testosterone and DHEAS levels, consistent with PCOS. The 17-hydroxyprogesterone level was normal, ruling out congenital adrenal hyperplasia. The patient is currently on spironolactone, which has improved hirsutism. Consideration of additional treatments, such as GLP-1 agonists, may be discussed if weight management becomes a concern. During the consultation, I discussed the potential diagnosis of [place]'s Syndrome and the need for further testing to confirm or rule out this condition. We reviewed the possibility of contamination affecting the salivary cortisol test results and the importance of accurate sample collection. I explained the role of ACTH levels and the potential for pituitary adenomas. We also discussed the management of PCOS, including the use of spironolactone for hirsutism and the potential consideration of GLP-1 agonists for weight management. I advised the patient on the importance of follow-up testing and the possibility of seeking a second opinion if results remain inconclusive. - Follow up with repeat salivary cortisol test as scheduled. - Continue taking spironolactone as prescribed for hirsutism. - Monitor for any unusual symptoms such as easy bruising or significant changes in weight, and report them promptly. - The patient had an opportunity to ask questions regarding treatment plan. The patient expressed understanding and agreement with the above treatment plan. Patient was informed and verbally consented to the use of an ambient scribe for clinic note documentation during this visit. Coding Level of Care Code Est Pt Level 3 (07841) Diagnoses Polycystic ovary E28.2
[2025-02-28 15:00] VITALS: BP 114/76; PULSE 106; O2SAT 97; BMI 44.4
--- OUTSIDE RECORDS SUMMARY | 2025-02-28 15:17 | XMS_ITS | Encounter Summary ---
Author Organization [facility] Address [address] [place] [address] Phone Care Team Providers Care Certified Pesticide Applicator Name Role Phone Cristina Franks MD Primary Care Provider [phone] Encounter Details Date Type Department Care Team (Late st Contact Info) Description 01/09/2018 Conversion Encounter [facility] [address] [place] [address] Cristina Franks MD [address] [place] [address] Social History Tobacco Use Types Packs/Day Years [...] on filedocumented in this encounter Care Teams Certified Pesticide Applicator Relationship Specialty Start Date End Date Cristina Franks MD [address] [place] [address] PCP - General 12/29/17 10/03/24 documented as of this encounter
--- OUTSIDE RECORDS SUMMARY | 2025-02-28 15:17 | XMS_ITS | Clinical Summary ---
Author Organization [facility] Address [address] [place] [address] Care Team Providers Care Cut Off Saw Operator Metal Name Role Phone Zee Lee Primary Care Provider [phone] Allergies No known active allergies Medications buPROPion XL (WELLBUTRIN XL) 150 mg 24 hr tablet Take 1 tablet (150 mg total) by mouth 1 (one) time each day in the morning. Active albuterol HFA (PROAIR HFA ; PROVENTIL HFA ; VENTOLIN HFA) 90 mcg/actuation inhaler Inhale 2 Puffs into the lungs every 4 hours as needed for Cough or Wheezing. 1 Active reservoir inhalation (INSPIREASE) device Inhale 1 Device into the lungs as needed (With inhaler). 6 Active lansoprazole (PREVACID) [address] capsuleIndicati ons:Gastroesoph ageal reflux disease, unspecified whether esophagitis present Take 1 capsule (30 mg total) by mouth 1 (one) time each day. Do not crush or chew. 30 each 11 4 025 Active buPROPion XL (WELLBUTRIN XL) 300 mg [...] mouth Every 4 hours as needed. Active cloNIDine (CATAPRES) 0.1 mg tablet Take 1 tablet (0.1 mg total) by mouth 2 (two) times a day if needed. 5 Active norgestimate-et hinyl estradioL (ORTHO-CYCLEN) 0.25-0.035 mg per tablet TAKE 1 TABLET BY MOUTH EVERY DAY 84 tablet 3 5 Active norgestimate-et hinyl estradioL (ORTHO-CYCLEN) 0.25-35 mg-mcg per tablet Take 1 tablet by mouth 1 (one) time each day. 4 025 Discontinued Active Problems Problem Noted Date Diagnosed Date Anxiety 07/03/2024 Major depression 07/03/2024 Chronic neutrophilia 02/10/2021 Overview (07/03/2024): Seen by Dr Casarez- ct negative, posible from anxiety and stress Bipolar I disorder ([facility] V24, [facility] V28) Asthma 10/24/2015 Encounters Date Type Department Care Team Description 01/24/2025 3:00 PM EDT Office Visit [facility] Hematology Oncology [address] [place] [address] Cristin Dutta MD Granulocytosis (Primary Dx) 01/09/2025 3:30 PM EDT Office Visit [facility] Hematology Oncology [address] [place] [address] Cristin Dutta MD Leukocytosis, unspecified type; Elevated platelet count from Last 3 Months Immunizations Name Administration Dates Next Due DTP 02/26/1998,1997,1997 DTaP (Infanrix) 6wks to less than 7yo 04/18/2002 ,11/08/1998 DTaP, IPV, Hib, Hepatitis B Combined (Vaxelis) 6wks to less than 5yo 11/08/1998,02/26/1998,1997,09/17 [id number] (Pentacel) 2mo to less than 5yo 11/08/1998,02/26/1998,1997,09/17 [...] GERD (gastroesophageal reflux disease) Bipolar 1 disorder (CMS/HCC V24, CMS/HCC V28) Family History Medical History Relation Name [...] Sign Reading Time Taken Comments Blood Pressure 141/87 01/24/2025 2:53 PM EDT Pulse 103 01/24/2025 2:53 PM EDT Temperature 36.4 C (97.6 F) 01/24/2025 2:53 PM EDT Respiratory Rate 14 08/25/2024 10:14 AM EST Oxygen Saturation 98% 01/24/2025 2:53 PM EDT Inhaled Oxygen Concentration - - Weight 117 kg (259 lb) 01/24/2025 2:53 PM EDT Height 162.6 cm (5' 4 ) 01/09/2025 3:34 PM EDT Body Mass Index 44.46 01/09/2025 3:34 PM EDT Plan of Treatment Upcoming Encounters Date Type Department Care Team (Late st Contact Info) Description 03/09/2025 9:40 AM EDT Office Visit Obstetrics and Gynecology [address] [address] Sofia Alvarez PA [address] [place] [id number] Health Maintenance Due Date Last Done Comments Pneumococcal Vaccine: Pediatrics (0 to 5 Years) and At-Risk Patients (6 to 49 Years) (2 of 2 - PCV) 11/24/2016 11/25/2015 Depression Screening 02/15/2021 Social Influencers of Health Screening 02/15/2021 COVID-19 Vaccine ( season) 2024 09/05/2021, 10/28/2020 Influenza Vaccine (#1) 2025 , 05/13/2020, 06/30/2018, Additional history exists Cervical Cancer [...] Additional history exists HPV Vaccines Completed 06/30/2018, 02/2017, 11/25/2015 Gonorrhea/Chlamydia Screening Discontinued 01/27/2024 HIV Screening [...] Procedure Name Priority Date/Time Associated Diagnosis Comments MANUAL DIFFERENTIAL - SYSMEX WAM Routine 01/09/2025 4:09 PM EDT Leukocytosis, unspecified type Elevated platelet count CBC WITH AUTO DIFFERENTIAL Routine 01/09/2025 4:09 PM EDT Leukocytosis, unspecified type Elevated platelet count FERRITIN Routine 01/09/2025 4:09 PM EDT Elevated platelet count IRON AND TIBC Routine 01/09/2025 4:09 PM EDT Elevated platelet count ADRI IFA WITH TITER AND PATTERN Routine 01/09/2025 4:09 PM EDT Leukocytosis, unspecified type Elevated platelet count SEDIMENTATION RATE Routine 01/09/2025 4: 09 PM EDT Leukocytosis, unspecified type Elevated platelet count CBC AND DIFFERENTIAL Routine 01/09/2025 4:09 PM EDT Leukocytosis, unspecified type Elevated platelet count HEPATITIS C SCREENING Routine 01/27/2024 HIV SCREENING Routine 01/27/2024 HM GONORRHEA/CHLAMYDIA SCRREENING Routine 01/27/2024 PAP SMEAR Routine 10/14/2022 LIPID PANEL Routine 11/26/2021 from Last 3 Months or Most Recently Relevant to Health Maintenance Results * (ABNORMAL) Manual differential (01/09/2025 4:09 PM EDT) Neutrophils % 50.0 % LAB HEMETOLOGY METHOD 01/09/2025 6:18 PM EDT [facility] Lymphocytes % 40.0 % LAB HEMETOLOGY METHOD 01/09/2025 6:18 PM EDT [facility] Monocytes % 7.0 % LAB HEMETOLOGY METHOD 01/09/2025 6:18 PM EDT [facility] Eosinophils % 1.0 % LAB HEMETOLOGY METHOD 01/09/2025 6:18 PM EDT [facility] Basophils % 3.0 % LAB HEMETOLOGY METHOD 01/09/2025 6:18 PM EDT [facility] Neutrophils Absolute Manual 7.75(H) 1.50 - 7.00 K/mcL LAB HEMETOLOGY METHOD 01/09/2025 6:18 PM EDT [facility] Lymphocytes Absolute 6.20(H) 1.00 - 5.00 K/mcL LAB HEMETOLOGY METHOD 01/09/2025 6:18 PM EDT [facility] Monocytes Absolute Manual 1.09(H) 0.20 - 1.00 K/mcL LAB HEMETOLOGY METHOD 01/09/2025 6:18 PM EDT [facility] Eosinophils Absolute Manual 0.16 0.00 - 0.50 K/mcL LAB HEMETOLOGY METHOD 01/09/2025 6:18 PM EDT [facility] Basophils Absolute Manual 0.47(H) 0.00 - 0.20 K/mcL LAB HEMETOLOGY METHOD 01/09/2025 6:18 PM EDT [facility] Rbc Morphology Consistent with indices Consistent with indices, Normal for [place] LAB HEMETOLOGY METHOD 01/09/2025 6:18 PM EDT [facility] Platelet Morphology - WAM See Note(A) Normal LAB HEMETOLOGY METHOD 01/09/2025 6:18 PM EDT [facility] Comment:PLT: Normal Blood Venous blood specimen / Unknown Venipuncture / Unknown 01/09/2025 4:09 PM EDT 01/09/2025 4:38 PM EDT us Cristin Dutta MD LAB BLOOD ORDERABLES Final R esult [facility] [address] [place] [address], [place] [phone] * ADRI IFA with titer and pattern (01/09/2025 4:09 PM EDT) [facility] ADRI Negative Negative 01/10/2025 2:00 PM EDT [facility] Blood Venous blood specimen / Unknown Venipuncture / Unknown 01/09/2025 4:09 PM EDT 01/09/2025 4:37 PM EDT Cristin Dutta MD LAB BLOOD ORDERABLES Final R esult [facility] [address] [place] [address], [place] [phone] * (ABNORMAL) CBC auto differential (01/09/2025 4:09 PM EDT) [facility] WBC 15.5(H) 4.8 - 10.8 K/mcL LAB HEMETOLOGY METHOD 01/09/2025 6:18 PM EDT [facility] RBC 5.00(H) 3.80 - 4.80 M/mcL LAB HEMETOLOGY METHOD 01/09/2025 6:18 PM EDT [facility] Hemoglobin 14.7 11.5 - 16.0 g/dL LAB HEMETOLOGY METHOD 01/09/2025 6:18 PM EDT [facility] Hematocrit 44.1 35.0 - 47.0 % LAB HEMETOLOGY METHOD 01/09/2025 6:18 PM EDT [facility] MCV 87.7 79.0 - 98.0 FL LAB HEMETOLOGY METHOD 01/09/2025 6:18 PM EDT [facility] MCH 29.2 27.0 - 32.0 pcg LAB HEMETOLOGY METHOD 01/09/2025 6:18 PM EDT [facility] MCHC 33.3 32.0 - 37.0 g/dL LAB HEMETOLOGY METHOD 01/09/2025 6:18 PM EDT [facility] RDW 12.3 11.0 - 15.0 % LAB HEMETOLOGY METHOD 01/09/2025 6:18 PM EDT [facility] Platelets 490(H) 130 - 400 K/mcL LAB HEMETOLOGY METHOD 01/09/2025 6:18 PM EDT [facility] MPV 10.0 7.0 - 11.0 FL LAB HEMETOLOGY METHOD 01/09/2025 6:18 PM EDT [facility] NRBC 0.0 <1.0 % LAB HEMETOLOGY METHOD 01/09/2025 6:18 PM EDT [facility] NRBC Absolute 0.00 <0.10 K/mcL LAB HEMETOLOGY METHOD 01/09/2025 6:18 PM EDT [facility] Blood Venous blood specimen / Unknown Venipuncture / Unknown 01/09/2025 4:09 PM EDT 01/09/2025 4:38 PM EDT Cristin Dutta MD LAB BLOOD ORDERABLES Final R esult [facility] [address] [place] [address], * (ABNORMAL) Iron and TIBC (01/09/2025 4:09 PM EDT) Iron 76 40 - 150 mcg/dL LAB CHEMISTRY METHOD 01/09/2025 5:39 PM EDT [facility] TIBC 480(H) 250 - 450 mcg/dL LAB CHEMISTRY METHOD 01/09/2025 5:39 PM EDT [facility] Iron Saturation 16 15 - 50 % LAB CHEMISTRY METHOD 01/09/2025 5:39 PM EDT [facility] Blood Venous blood specimen / Unknown Venipuncture / Unknown 01/09/2025 4:09 PM EDT 01/09/2025 4:37 PM EDT us Cristin Dutta MD LAB BLOOD ORDERABLES Final R esult Performing Organization Address City/[facility]/ZIP Co de Phone Number [facility] [address] [place] [address], [place] [phone] * (ABNORMAL) Sedimentation rate (01/09/2025 4:09 PM EDT) Sed Rate 29(H) 0 - 20 mm/hr LAB HEMETOLOGY METHOD 01/09/2025 5:10 PM EDT [facility] Blood Venous blood specimen / Unknown Venipuncture / Unknown 01/09/2025 4:09 PM EDT 01/09/2025 4:38 PM EDT Cristin Dutta MD LAB BLOOD ORDERABLES Final R esult Performing Organization Address [facility]/ZIP Co de Phone Number [facility] [address] [place] [address], [place] [phone] * Ferritin (01/09/2025 4:09 PM EDT) Ferritin 38 8 - 252 ng/mL LAB CHEMISTRY METHOD 01/09/2025 5:40 PM EDT [facility] Blood Venous blood specimen / Unknown Venipuncture / Unknown 01/09/2025 4:09 PM EDT 01/09/2025 4:37 PM EDT us Cristin Dutta MD LAB BLOOD ORDERABLES Final R esult Performing Organization Address City/[facility]/ZIP Co de Phone Number [facility] [address] [place] [address], [place] [phone] * Hm HIV Screening (01/27/2024) HIV Screening abstracted Historical Provider HEALTH MAINTENANCE Final Result * Hepatitis C Screening (01/27/2024) Hepatitis C Screening abstracted Historical Provider MD HEALTH MAINTENANCE Final Result * Gonorrhea/Chlamydia Screening (01/27/2024) Gonorrhea/Chla mydia Screening abstracted Historical Provider MD HEALTH MAINTENANCE Final Result * Pap smear (10/14/2022) 10/14/2022 Narrative HISTORICAL TESTING LAB RESULTING AGENCY - 10/19/2022 3:21 PM EST [id number] THINPREP PAP, IMAGED: NEGATIVE FOR SQUAMOUS INTRAEPITHELIAL LESION AND MALIGNANCY . REACTIVE CELLULAR CHANGES. SHIFT IN SUSAN, SUGGESTIVE OF BACTERIAL VAGINOSIS. CHARMAINE CANCHOLA , CT(ASCP) (CASE SCREENED 10 19 2022) LAURI RALPH M.D. , PATHOLOGIST (CASE ELECTRONICALLY SIGNED 10 19 2022) RESULT OF APTIMA HIGH RISK HPV ASSAY: HIGH RISK HPV: NEGATIVE (SEROTYPES 16,18,31,33,35,39,45,51,52,56,58,59,66,68) COMPLETED ON 2022-10-16 ADEQUACY: SATISFACTORY ENDOCERVICAL/TRANSFORMATION ZONE COMPONENT PRESENT. SOURCE: THINPREP PAP HPV ANY DX: REFLEX 16 AND 18, CERVICAL, IMAGED CLINICAL INFORMATION: HPV ANY DIAGNOSIS, HORMONES, NO LMP RECORDED, LAST ANNUAL 10/14/20, PAP HX; NEGATIVE. Z12.4 Yan[facility] LAB CYTOLOGY ORDERABLES Final Result HISTORICAL TESTING [...] Most Recently Relevant to Health Maintenance [place] [address] [place] [address] MEDICAID - [place] Care Teams Cut Off Saw Operator Metal Relationship Specialty Start Date End Date Zee Lee PA [address] [place] [id number] PCP - General Sweatband Separator 12/11/24
--- OUTSIDE RECORDS SUMMARY | 2025-02-28 15:17 | XMS_ITS | Encounter Summary ---
Author Organization [facility] Address [address] [place] [address] Care Team Providers Care Internal Medicine Veterinary Technician Name Role Phone Love Aguirre MD Primary Care Provider Unavailable Teena Orozco MD Primary Care Provider Unavaila Radha Martinez MD Primary Care Provider Unavailable Kathy Miranda MD Primary Care Provider [phone] Reason for Referral * EXTERNAL (Routine) - Authorized/Booked Specialty Diagnoses / Procedures Referred By Scarlet shultz Referred To Contact Gastroenterology Procedures REFERRAL TO GASTROENTEROLOGY Love Aguirre MD [address] [place] [address] Oni Lebron MD [address] [place] [address] Referral ID Status Reason Start Date Expiration Date V isits Requested Visits Authorized SEE REVIEW 05/17/2019 Authorized/ Booked 05/17/2019 08/17/2019 1 1 Reason for Visit * Reason Onset Date Comments Rn Staffing Feedback 05/17/2019 Dr. Lebron Encounter Details Date Type Department Care Team Description 05/17/2019 Telephone Adult Medicine - [place] [address] [place] [address] Love Aguirre MD Rn Staffing Feedback (Dr. Lebron) Social History Tobacco Use Types Packs/Day Years Used Date Smoking Tobacco: Never Smokeless Tobacco: Never Alcohol Use Standard Drinks/Week Comments No 0 (1 standard drink = 0.6 oz pur e alcohol) Sex Assigned at Date Recorded Not on file documented as of this encounter Miscellaneous Notes * Telephone Encounter - Joshua Alvares - 05/17/2019 4:03 PM EDT [facility] Specialty Referral Status [ Save Response to Batch ] Request: [id number] [facility] Trace #: [id number] Patient: ROYAL DAVIS Subscriber: RAISA J JAMES Submitter : LOVE LATHAM Submitter Type: Provider : 1995 Referral (#[id number]) Specialty Care Review Type: Initial Certification Status : Certified in total Service Type : Medical Care Place Of Service : Office Visits : 6 Service Date : 05/17/2019-05/16/2020 Service Providers Provider Name ID Provider Type Specialty MD ONI LEBRON NPI : [id number] Performing Specialist Please review this patients new referral request. The referral has been pended. Please complete thefollowing: If approved> sign order If denied>please give instructions and route to your practice nursing pool. Practice nurse should inform referrals and the patient if denied. * Telephone Encounter - Jesus Petty - 05/17/2019 3:53 PM EDT What insurance does the patient have today? [place]: [place] / Plan: HMO $30 [place] [id number] / Product Type: HMO PRE-PAID Effective 05/23/09: [facility] will not retro referral requests over 90 [...] insurance must be obtained and registered in [facility] or their referral can not be [...] Is this visit:Initial Visit Address of Specialist: [address] [place] [address] Phone # of Specialist: [phone] Fax #: (if applicable): Does patient have an appointment scheduled?: YES Date of appointment- (including a retro-request): 06/16/19 Is this appointment related to: Not MVA, WC or Surgery related documented in this encounter Plan of Treatment Not on file documented as of this encounter Visit Diagnoses Not on filedocumented in this encounter Care Teams Internal Medicine Veterinary Technician Relationship Specialty Start Date End Date [place]-Love Latham MD PCP - General Internal Medicine 08/21/1511/28/20 Teena Orozco MD PCP - General Internal Medicine 11/29/20 03/17/21 Radha Zhang MD PCP - General Internal Medicine 03/18/2110/22 Kathy Miranda MD [facility] [place] [address] PCP - General Internal Medicine 11/14/21 documented as of this encounter
--- OUTSIDE RECORDS SUMMARY | 2025-02-28 15:17 | XMS_ITS | Clinical Summary ---
Author Organization [facility] Address [address] [place] [address] Care Team Providers Care Lingo Cleaner Name Role Phone Teena Orozco MD Primary [...] Screening (Pap Smear) 2018 Influenza Vaccine (#1) 2025 8, 06/01/2016, 06/28/2015, Additional history exists DTap / Tdap / Td (8 - Td or Tdap) 12/29/2028 12/29/2018, 06/24/2009, 04/18/2002, Additional history exists RSV Ped < 20 months Aged Out No longe r eligible based on patient's age to complete this topic Care Teams Lingo Cleaner Relationship Specialty Start Date End Date Teena Orozco MD PCP - General Internal Medicine 01/06/21
== END 2025-02-28 16:11 | disposition home or self-care (01) ==
LOC: HO.ENCR 14:49
PROVIDERS: PCP Physician Assistant; Visit Provider Internal Medicine Endocrinology, Diabetes & Metabolism
DX: E28.2 Polycystic ovarian syndrome (principal)
CPT/HCPCS: 99213

== ENCOUNTER 2025-04-16 15:40 | Outpatient (AMB) | payer BC, MEDICAID, SELFPAY ==
--- NOTE | 2025-04-16 15:42 | A.OFFVIS_ITS ---
Vital Signs 04/16/25 15:54 Height 5 ft 4 in Weight 256 lb 6.362 oz BMI 44.0 BP 116/82 Blood Pressure Location Rt brachial Position Sitting Pulse 106 H Pulse Source Pulse Oximeter Pulse Oximetry (%) 98 Oxygen Delivery Method Room Air Intake Visit Reasons: f/u polycystic ovarian syndrome Intake Note: Patient present for PCOS follow up. Prototype Fabricator Required: No Accompanied by: Self / Same As Patient Allergies No Known Allergies Allergy (Verified 04/16/25 15:55) Medication List - Last Reconciled 04/16/25 by Glenn Perez MD bupropion HCl XL (Wellbutrin XL) 300 mg PO QAM bupropion HCl XL (Wellbutrin XL) 150 mg PO QAM clonidine HCl 0.1 mg PO BEDTIME fluticasone propionate 110 mcg/actuation 1 puff inhalation BID lurasidone (Latuda) 60 mg PO DAILY norgestimate-ethinyl estradiol 0.25-0.035 mg (Sprintec (28)) 1 tab PO DAILY spironolactone 100 mg PO DAILY HPI Comments Details: The patient is a 29-year-old female presenting with concerns regarding suspected Polycystic Ovarian Syndrome (PCOS). Her menstrual periods have been regular on control. She reports facial hair growth on her chin, managed by plucking. 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 She has experienced chronic weight issues despite losing 35 pounds since 2022 through lifestyle changes. A history of metformin use was noted for weight loss, which was discontinued due to side effects. The patient has a history of Bipolar Disorder, Type I, and no known personal history of diabetes. - Metformin: Previously used for weight loss; discontinued due to gastrointestinal side effects. - Corticosteroids: Elevation in cortisol noted, linked to ongoing evaluation for possible [place]'s syndrome but could be due to control pills raising CBG. Menarche was age 11. Menses have been regular . on BCP OCP use: On Sprintec Metformin use: Took but had diarrhea Weight gain: Chronic problem. Lost 35 lbs since 2022 . Calorie deficit and exercise more . Never took wt loss medications. The patient has been practicing a calorie deficit diet since 2022, which has contributed to her weight loss. There is no mention of specific dietary preferences, food allergies, or intolerances. Emphasis on calorie reduction and general diet control is indicated as part of her weight management strategy. Hirsutism/hyperandrogenism: Chin, plucks to get rid of. Is bothersome to treat Trying to conceive/clomiphene: No Ovarian U/S: No T2DM or acanthosis: No -paternal gramndfather Snores at night - seeing sleep specialist - Endocrine System: Reports irregularities possibly indicative of PCOS, facial hair. - Reproductive System: Reports regular periods due to control; denies current ovulatory concerns. - Gastrointestinal System: Reports past metformin use, associated diarrhea. - Cardiovascular/Respiratory Systems: Denies snoring considerations; referred for possible sleep apnea. - Neurological/Psychiatric: Reports previous psychosis, diagnosed with Bipolar Disorder, Type I; no current neuropsychiatric issues mentioned. Lipids: [] BP: [] Labs: Testosterone equals 30. Normal prolactin, normal TSH, normal 17 hydroxy progesterone level. Workup for [place]'s showed elevated midnight salivary cortisol and slightly elevated 24 hour urine free cortisol but repeat 24 hour urine cortisol was normal The patient is a 29-year-old female presenting with concerns regarding potential Ronnie's Syndrome and Polycystic Ovary Syndrome (PCOS). The patient underwent a 24-hour urine test which initially showed slightly elevated cortisol levels, but a repeat test returned normal results. The salivary cortisol test was elevated, raising concerns for [place]'s Syndrome, although potential contamination was considered. The ACTH level was normal, which does not rule out [place]'s Syndrome, as pituitary adenomas can still be present. The patient has a history of slightly elevated testosterone and DHEAS levels, consistent with PCOS. The 17-hydroxyprogesterone level was normal, ruling out congenital adrenal hyperplasia. The patient reports changes in chin hair growth, which has improved with spironolactone treatment. - Spironolactone: Used for managing hirsutism, with noted improvement in chin hair growth. A repeat midnight salivary cortisol was mildly elevated but 24 hour urine for free cortisol was normal. 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 The patient has been managing PCOS with spironolactone and control pills, which she feels have been effective in reducing symptoms, although hair growth persists but is less severe. She has experienced fluctuations in weight, having gained and lost a few pounds recently, and is actively trying to lose weight. There is a concern for [place]'s Syndrome due to elevated midnight salivary cortisol levels, which were initially 1.15 and later 0.12, both above the normal range of less than 0.09. The patient has undergone urine tests, which showed slightly elevated cortisol levels initially, but normal levels subsequently. The use of control pills complicates the interpretation of these results due to their effect on cortisol-binding globulin. The patient has had an MRI of the head, which was normal, but the process mold technician notes that pituitary tumors can be small and difficult to detect. ACTH levels were measured and found to be low normal, suggesting the possibility of pituitary involvement in the elevated cortisol levels. - Labs: Midnight salivary cortisol levels initially 1.15, later 0.12 (normal <0.09). - Labs: Urine cortisol levels slightly elevated initially, normal subsequently. - Imaging: MRI of the head normal. - Labs: ACTH levels low normal. [facility] Medical History (Updated 02/27/25 @ 20:[address], LDN) Polycystic ovary Surgical History No pertinent past surgical history Family History Mother Hypercholesteremia Father Hypercholesteremia Social History Alcohol intake: current Alcohol intake frequency: a few times a month e-Cigarette/Vaping Use: Currently Using Substance Use Type: Marijuana Physical Exam Vital Signs: BMI result Body Mass Index 44.0 Assessment & Plan Assessment & Plan (1) Polycystic ovary: Code(s): E28.2 - Polycystic ovarian syndrome Category: Medical Plan: This is a 29-year-old female with workup consistent with PCOS. She does have conflicting results regarding workup for [place]'s in that midnight salivary cortisol slightly elevated while 24 hour urine is normal Could consider holding control pill for 4-6 weeks and doing a dexamethasone suppression test to rule out [place]'s 1. Polycystic Ovary Syndrome PCOS) The patient is managing PCOS with spironolactone and control pills, which have been effective. Monitoring of symptoms and weight management is advised. 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 Plan includes discontinuing control for six weeks, followed by a dexamethasone suppression test and repeat midnight salivary cortisol test. Referral to a specialized center may be considered if results remain inconclusive. During the consultation, I discussed with the patient the possibility of Cushi ng's Syndrome due to elevated cortisol levels and the impact of control pills on these results. We reviewed the plan to discontinue control for six weeks and perform a dexamethasone suppression test and repeat midnight salivary cortisol test to clarify the diagnosis. I explained the potential need for referral to a specialized center if results remain inconclusive and discussed the importance of accurate diagnosis before proceeding with invasive procedures. - Discontinue control pills for six weeks before testing. - Schedule and complete the dexamethasone suppression test and midnight salivary cortisol test after six weeks. - Use alternative contraception methods during this period. - Follow up in 2-1/2 months for test results and further evaluation. The patient had an opportunity to ask questions regarding treatment plan. The patient expressed understanding and agreement with the above treatment plan. Patient was informed and verbally consented to the use of an ambient scribe for clinic note documentation during this visit. Orders: Orders Saliva Cortisol 6 Weeks E66.01 - Morbid (severe) obesity due to excess calories, Z68.41 - Body mass index [BMI] 40.0-44.9, adult Dexamethasone 6 Weeks E66.01 - Morbid (severe) obesity due to excess calories, Z68.41 - Body mass index [BMI] 40.0-44.9, adult Cortisol Random 6 Weeks E66.01 - Morbid (severe) obesity due to excess calories, Z68.41 - Body mass index [BMI] 40.0-44.9, adult Medications: New dexamethasone 1 mg PO ONCE 1 tab 0RF Coding Level of Care Code Est Pt Level 3 (63406) Diagnoses Polycystic ovary E28.2
[2025-04-16 15:54] VITALS: BP 116/82; PULSE 106; O2SAT 98; BMI 44.0
--- OUTSIDE RECORDS SUMMARY | 2025-04-16 17:38 | XMS_ITS | Encounter Summary ---
Author Organization [facility] Address [address] [place] [address] Care Team Providers Care Disc Ruler Operator Name Role Phone Audelia Aguirre MD Primary Care Provider Unavailable Teena Orozco MD Primary Care Provider UnavailRadha Orourke MD Primary Care Provider Unavailable Kathy Miranda MD Primary Care Provider [phone] Encounter Details Date Type Department Care Team Description 04/07/2019 Circus Laborer Report Medical Records [address] [place] [id number] Janae Alva Social History Tobacco Use Types Packs/Day Years [...] on filedocumented in this encounter Care Teams Disc Ruler Operator Relationship Specialty Start Date End Date Audelia Aguirre MD PCP - General Internal Medicine 08/21/1511/28/20 Teena Orozco MD PCP - General Internal Medicine 11/29/20 03/17/21 Radha Zhang MD PCP - General Internal Medicine 03/18/2110/22 Kathy Miranda MD [address] [place] [address] PCP - General Internal Medicine 11/14/21 documented as of this encounter
--- OUTSIDE RECORDS SUMMARY | 2025-04-16 17:38 | XMS_ITS | Encounter Summary ---
Author Organization [facility] Address [address] [place] [address] Care Team Providers Care Hair Dryer Name Role Phone Gaby-Audelia Quiroz MD Primary Care Provider Unavailable Teena Orozco MD Primary Care Provider Unavaila Radha Martinez MD Primary Care Provider Unavailable Kathy Miranda MD Primary Care Provider + [phone] Reason for Visit * Reason Comments E-prescribe Rx Request Encounter Details Date Type Department Care Team Description 09/05/2018 Refill Medicine/Pediatrics - [address] [id number] Jannie Moise PA-C E-prescribe Rx Request Social [...] THE PATIENT'S LAST APPOINTMENT IN ADULT MEDICINE? [id number] WHEN WAS THE LAST TIME THE PATIENT SAW THEIR PCP? [phone] Does patient have an upcoming appointment? no [...] N/A Patients current insurance carrier is: Payor: [facility]/[employer] FFS / Plan: [employer] $30 [place] [id number] / ProductType: [employer] PRE-PAID documented in this encounter Plan of Treatment Not on file documented as of this encounter Visit Diagnoses Not on filedocumented in this encounter Care Teams Hair Dryer Relationship Specialty Start Date End Date Armstrong-Audelia Quiroz MD PCP - General Internal Medicine 08/21/1511/28/20 Teena Orozco MD PCP - General Internal Medicine 11/29/20 03/17/21 Radha Zhang MD PCP - General Internal Medicine 03/18/2110/22 Kathy Miranda MD [address] [place] [id number] PCP - General Internal Medicine 11/14/21 documented as of this encounter
--- OUTSIDE RECORDS SUMMARY | 2025-04-16 17:38 | XMS_ITS | Encounter Summary ---
Author Organization [facility] Address [address] [place] [address] Care Team Providers Care Solar Thermal Installer Name Role Phone Audelia Aguirre MD Primary Care Provider Unavailable Teena Orozco MD Primary Care Provider UnavailRadha Orourke MD Primary Care Provider Unavailable Kathy Miranda MD Primary Care Provider [phone] Encounter Details Date Type Department Care Team Description 07/18/2018 Release of Information Medical Records [address] [place] [id number] Abstract, Provider Social History Tobacco Use Types [...] on filedocumented in this encounter Care Teams Solar Thermal Installer Relationship Specialty Start Date End Date Audelia Aguirre MD PCP - General Internal Medicine 08/21/1511/28/20 Teena Orozco MD PCP - General Internal Medicine 11/29/20 03/17/21 Radha Zhang MD PCP - General Internal Medicine 03/18/2110/22 Kathy Miranda MD [address] [place] [id number] PCP - General Internal Medicine 11/14/21 documented as of this encounter
--- OUTSIDE RECORDS SUMMARY | 2025-04-16 17:38 | XMS_ITS | Encounter Summary ---
Author Organization [facility] Address [address] [place] [address] Care Team Providers Care Piece Dye Worker Name Role Phone Love Aguirre MD Primary Care Provider Unavailable Teena Orozco MD Primary Care Provider Unavaila Radha Martinez MD Primary Care Provider Unavailable Kathy Miranda MD Primary Care Provider + [phone] Reason for Referral * EXTERNAL (Routine) - Authorized/Booked Specialty Diagnoses / Procedures Referred By Scarlet shultz Referred To Contact Gastroenterology Procedures REFERRAL TO GASTROENTEROLOGY Love Aguirre MD [address] [place] [address] Oni Lebron MD [address] [place] [id number] Referral ID Status Reason Start Date Expiration Date V isits Requested Visits Authorized SEE REVIEW 05/17/2019 Authorized/ Booked 05/17/2019 08/17/2019 1 1 Reason for Visit * Reason Onset Date Comments Material Dispatcher Feedback 05/17/2019 Dr. Lebron Encounter Details Date Type Department Care Team Description 05/17/2019 Telephone Adult Medicine - [place] [address] [place] [address] Love Aguirre MD Material Dispatcher Feedback (Dr. Lebron) Social History Tobacco Use Types Packs/Day Years Used Date Smoking Tobacco: Never Smokeless Tobacco: Never Alcohol Use Standard Drinks/Week Comments No 0 (1 standard drink = 0.6 oz pur e alcohol) Sex Assigned at Date Recorded Not on file documented as of this encounter Miscellaneous Notes * Telephone Encounter - Joshua Alvares - 05/17/2019 4:03 PM EDT [facility] Specialty Referral Status [ Save Response to Batch ] Request: [id number] [facility] Trace #: [id number] Patient: ROYAL DAVIS Subscriber: RAISA J JAMES Submitter : LOVE LATHAM Submitter Type: Provider : 1995 Referral (#[id number]) Specialty Care Review Type: Initial Certification Status : Certified in total Service Type : Medical Care Place Of Service : Office Visits : 6 Service Date : 05/17/2019-05/16/2020 Service Providers Provider Name ID Provider Type Specialty MD ONI LEBRON NPI : [id number] Performing Specialist Please review this patients new referral request. The referral has been pended. Please complete thefollowing: If approved> sign order If denied>please give instructions and route to your practice nursing pool. Practice nurse should inform referrals and the patient if denied. * Telephone Encounter - Jesus Petty - 05/17/2019 3:53 PM EDT What insurance does the patient have today? Payor: -[employer]/H[employer] FFS / Plan: HMO $30 [place] [id number] / Product Type: HMO PRE-PAID Effective 05/23/09: [facility] will not retro referral requests [...] insurance must be obtained and registered in [facility] or their referral can not be [...] Is this visit:Initial Visit Address of Specialist: [address] [place] [address] Phone # of Specialist: [phone] Fax #: (if applicable): Does patient have an appointment scheduled?: YES Date of appointment- (including a retro-request): 06/16/19 Is this appointment related to: Not MVA, WC or Surgery related documented in this encounter Plan of Treatment Not on file documented as of this encounter Visit Diagnoses Not on filedocumented in this encounter Care Teams Piece Dye Worker Relationship Specialty Start Date End Date Ceresco-Love [place] MD PCP - General Internal Medicine 08/21/1511/28/20 Teena Orozco MD PCP - General Internal Medicine 11/29/20 03/17/21 Radha Zhang MD PCP - General Internal Medicine 03/18/2110/22 Kathy Miranda MD [facility] [place] [address] PCP - General Internal Medicine 11/14/21 documented as of this encounter
--- OUTSIDE RECORDS SUMMARY | 2025-04-16 17:39 | XMS_ITS | Clinical Summary ---
Author Organization [facility] [place] Address [address] [place] [address] Care Team Providers Care Refuse Collector Name Role Phone Zee Lee Primary Care Provider Allergies No known active allergies Medications buPROPion XL (WELLBUTRIN XL) 150 mg 24 hr tablet Take 1 tablet (150 mg total) by mouth 1 (one) time each day in the morning. Active albuterol HFA (PROAIR HFA ; PROVENTIL HFA ; VENTOLIN HFA) 90 mcg/actuation inhaler Inhale 2 Puffs into the lungs every 4 hours as needed for Cough or Wheezing. 02/21/2021 Active reservoir inhalation (INSPIREASE) device Inhale 1 Device into the lungs as needed (With inhaler). 06/01/2016 Active lansoprazole (PREVACID) [address] romanIndicatijeanmarie ns:Gastroesophag eal reflux disease, unspecified whether esophagitis present Take 1 capsule (30 mg total) by mouth 1 (one) time each day. Do not crush or chew. 30 each 07/11/2024 07/11/20 25 Active buPROPion XL (WELLBUTRIN XL) 300 mg 24 hr tablet Take 1 tablet (300 mg total) by mouth 1 (one) time each day. Active fluticasone HFA (Flovent HFA) 220 mcg/actuation inhaler Inhale 2 puffs by mouth. 04/12/2024 Active lurasidone (LATUDA) 60 mg tablet Take [...] 2 (two) times a day if needed. 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 V24, [facility] V28) Asthma 10/24/2015 Encounters Date Type Department Care Team Description 01/24/2025 3:00 PM EDT Office Visit [facility] Hematology Oncology [address] [place] [address] Cristin Dutta MD Granulocytosis (Primary Dx) from Last 3 Months Immunizations Name Administration Dates Next Due DTP 02/26/1998,1997,1997 DTaP (Infanrix) 6wks to less than 7yo 04/18/2002 ,11/08/1998 DTaP, IPV, Hib, Hepatitis B Combined (Vaxelis) 6wks to less than 5yo 11/08/1998,02/26/1998,1997,09/17 ORnX-EVM-CDF (Pentacel) 2mo to less than 5yo 11/08/1998,02/26/1998,1997,09/17 [...] GERD (gastroesophageal reflux disease) Bipolar 1 disorder ([facility] V24, [facility] V28) Family History Medical History Relation Name [...] = 0.6 oz pur e alcohol) SOCIALLY Housing Instability Answer Date Recorde d Are you worried that in the next 2 months you may not have stable housing? No 03/02/2025 Food Access & Nutrition Answer Date Rec orded Do you have access to a vari ety of food including fruits and vegetables? Yes 03/02/2025 Health Literacy Answer Date Recorded How often do you need to hav e someone help you when you read instructions, pamphlets, or other written material from your doctor or pharmacy? Never 03/02/2025 Caregiver: How often do you need to have someone help you when you read instructions, pamphlets, or other written material from your doctor or pharmacy? Not on file 03/02/2025 Financial Risk Answer Date Recorded How hard is it for you to pa y for the very basics like food, housing, medical care, and air conditioning / heating? Not very hard 03/02/2025 Transportation Answer Date Recorded Has the lack of transportati on kept you from meetings, work, or from getting things needed for daily living? No Has the lack of transportati on kept you from medical appointments or from getting medications? No 03/02/2025 Social Isolation Answer Date Recorded How often do you feel lonely or isolated from th ose around you? Never 03/02/2025 Food Risk Answer Date Recorded Within the past 12 months we worried whether our food would run out before we got money to buy more. Never true 03/02/2025 Within the past 12 months th e food we bought just didn't last and we didn't have money to get more. Never true 03/02/2025 Dependent Care Answer Date Recorded Do you need help finding or paying for care for your loved ones. For example, early childhood lead teacher or elderly care for an older adult? No 03/02/2025 Education Answer Date Recorded Do you think completing more education or training, like finishing a GED, going to college, or learning a trade, would be helpful for you? Yes 03/02/2025 Employment and Income Answer Date Recor ded During the last four weeks, have you been actively looking for work? No 03/02/2025 Living Situation Answer Date Recorded What is your living situation? 0 03/02/2025 Interpersonal Safety Answer Date Record ed Physical [...] Care Team (Late st Contact Info) Description 05/30/2025 2:15 PM EDT Office Visit Obstetrics and Gynecology [address] [address] Yaneth Casarez, [facility] [address] [place] [address] Health Maintenance Due Date Last Done Comments Pneumococcal Vaccine: Pediatrics (0 to 5 Years) and At-Risk Patients (6 to 49 Years) (2 of 2 - PCV) 11/24/2016 11/25/2015 COVID-19 Vaccine ( season) 2024 09/05/2021, 10/28/2020 Influenza Vaccine (#1) 2025 , 05/13/2020, 06/30/2018, Additional history exists Cervical Cancer Screening: Pap Smear 10/14/2025 10/14/2022, 10/14/2022, 10/14/2022, Additional history exists Social Influencers of Health Screening 03/02/2026 03/02/2025 Cholesterol Screening (Lipid Panel) 11/26/2026 11/26/2021 DTaP,Tdap,and [...] Additional history exists HPV Vaccines Completed 06/30/2018, 040 02/2017, 11/25/2015 Gonorrhea/Chlamydia Screening Discontinued 01/27/2024 HIV Screening Completed 01/27/2024, 01/27/2024 Hepatitis C Screening Completed 01/27/2024 Depression Screening Completed 03/02/2025 Hepatitis A Vaccines Aged Out No long er eligible based on patient's age to complete this topic Meningococcal B Vaccine Aged Out No l onger eligible based on patient's age to complete this topic RSV Immunization Patients Under 20 months Aged Out No longer eligible based on patient's age to complete this topic Procedures Procedure Name Priority Date/Time Associated Diagnosis Comments HM HEPATITIS C SCREENING Routine 01/27/2024 HM HIV SCREENING Routine 01/27/2024 HM GONORRHEA/CHLAMYDIA SCRREENING Routine 01/27/2024 HM HPV Routine 10/14/2022 LIPID PANEL Routine 11/26/2021 from Last 3 Months or Most Recently Relevant to Health Maintenance Results * Hm HIV Screening (01/27/2024) Pathologist [facility] HIV Screening abstracted [facility] Provider HEALTH MAINTENANCE Final Result * Hepatitis C Screening (01/27/2024) Pathologist [facility] Hepatitis C Screening abstracted [facility] Provider HEALTH MAINTENANCE Final Result * Gonorrhea/Chlamydia Screening (01/27/2024) Pathologist [facility] Gonorrhea/Chla mydia Screening abstracted [facility] Provider HEALTH MAINTENANCE Final Result * Cervical Cancer Screening: HPV (10/14/2022) Pathologist [facility] Cervical Cancer Screening: HPV negative, abstracted [facility] Provider HEALTH MAINTENANCE Final Result * (ABNORMAL) Lipid panel (11/26/2021) [facility] LDL/HDL Ratio 5(A) 0 - 4 Triglycerides 203(A) 0 - 150 mg/dL Cholesterol 213(A) 0 - 200 mg/dL HDL 41 >=40 mg/dL LDL Cholesterol 132(A) 0 - 100 mg/dL Blood Venous blood specimen / Unknown Result [facility] Provider LAB BLOOD ORDERABLES Marcelle l Result from Last 3 Months or Most Recently Relevant to Health Maintenance Insurance [facility] MEDICAID - [place] Care Teams Refuse Collector Relationship Specialty Start Date End Date Zee Lee PA [address] [place] [id number] PCP - General Coupon Manifest Clerk 12/11/24
--- OUTSIDE RECORDS SUMMARY | 2025-04-16 17:39 | XMS_ITS | Encounter Summary ---
Author Organization [facility] Address [address] [place] [address] Care Team Providers Care Security Officers And Guards Name Role Phone Teena Orozco MD Primary Care Provider UnavailRadha Orourke MD Primary Care Provider Unavailable Kathy Miranda MD Primary Care Provider + [phone] Encounter Details Date Type Department Care Team Description 12/16/2020 Telephone Adult Medicine - [address] [address] Lilia Emanuel PA-C Social History Tobacco Use Types Packs/Day Years Used Date Smoking Tobacco: Never Smokeless Tobacco: Never Alcohol Use Standard Drinks/Week Comments Yes 0 (1 standard drink = 0.6 oz pur e alcohol) social Sex Assigned at Date Recorded Not on file COVID-19 Exposure Response Date Recorded In the last month, have you been in contact with someone who was confirmed or suspected to have Coronavirus / COVID-19? No / Unsure 12/10/2020 10:16 AM EDT documented as of this encounter Miscellaneous Notes * Telephone Encounter - Genia Arriaza M.A. - 12/24/2020 12:40 PM EDT Spoke to patient Mom Maria Elena who is on VR and message was given below. [facility] * Telephone Encounter - Kala Patel M.A. - 12/16/2020 9:40 AM EDT CALLED PT AND LEFT MESSAGE TO RETURN CALL * Telephone Encounter - Lilia Emanuel PA-C - 12/16/2020 6:37 AM EDT Please let pt know that the white blood cell count was noted to be high in the hospital. I'd like to recheck at her convenience, order is in and she can go to lab. documented in this encounter Plan of Treatment Not on file documented as of this encounter Visit Diagnoses Not on filedocumented in this encounter Care Teams Security Officers And Guards Relationship Specialty Start Date End Date Teena Orozco MD PCP - General Internal Medicine 11/29/20 03/17/21 Radha Zhang MD PCP - General Internal Medicine 03/18/2110/22 Kathy Miranda MD [address] [place] [id number] PCP - General Internal Medicine 11/14/21 documented as of this encounter
--- OUTSIDE RECORDS SUMMARY | 2025-04-16 17:39 | XMS_ITS | Encounter Summary ---
Author Organization [facility] Address [address] [place] [address] Care Team Providers Care Occupational Safety Specialist Name Role Phone Audelia Aguirre MD Primary Care Provider Unavailable Teena Orozco MD Primary Care Provider UnavailRadha Orourke MD Primary Care Provider Unavailable Kathy Miranda MD Primary Care Provider [phone] Encounter Details Date Type Department Care Team Description 11/18/2016 Release of Information Medical Records [address] [place] [id number] Abstract, Provider Social History Tobacco Use Types [...] on filedocumented in this encounter Care Teams Occupational Safety Specialist Relationship Specialty Start Date End Date Audelia Aguirre MD PCP - General Internal Medicine 08/21/1511/28/20 Teena Orozco MD PCP - General Internal Medicine 11/29/20 03/17/21 Radha Zhang MD PCP - General Internal Medicine 03/18/2110/22 Kathy Miranda MD [address] [place] [id number] PCP - General Internal Medicine 11/14/21 documented as of this encounter
--- OUTSIDE RECORDS SUMMARY | 2025-04-16 17:39 | XMS_ITS | Clinical Summary ---
Author Organization [facility] Address [address] [place] [address] Care Team Providers Care Technical Maintenance Specialist Name Role Phone Teena Orozco MD Primary [...] age to complete this topic Care Teams Technical Maintenance Specialist Relationship Specialty Start Date End Date Teena Orozco MD PCP - General Internal Medicine 01/06/21
--- OUTSIDE RECORDS SUMMARY | 2025-04-16 17:39 | XMS_ITS | Encounter Summary ---
Author Organization [facility] Address [facility] [place] [address] Care Team Providers Care Stained Glass Window Designer Name Role Phone Gaby-Audelia Quiroz MD Primary Care Provider Unavailable Teena Orozco MD Primary Care Provider UnavailRadha Orourke MD Primary Care Provider Unavailable Kathy Miranda MD Primary Care Provider + [phone] Reason for Visit * Reason Onset Date Comments refill request 04/10/2020 Encounter Details Date Type Department Care Team Description 04/10/2020 Refill OBGYN - [place] [address] [place] [address] Yaneth Casarez [facility] [address] [place] [address] refill request Social History Tobacco Use Types [...] EDT WHEN WAS THE PATIENTS LAST ANNUAL ENVIRONMENTAL ENGINEERING INTERN EXAM? 01/26/2019 Does patient have an upcoming [...] end of the day? NO Payor: [facility]/[employer] FFS / Plan: HMO $30 [employer] [id number] / Product Type: HMO PRE-PAID documented in this encounter Plan of Treatment Not on file documented as of this encounter Visit Diagnoses Not on filedocumented in this encounter Care Teams Stained Glass Window Designer Relationship Specialty Start Date End Date [place]-Audelia Quiroz MD PCP - General Internal Medicine 08/21/1511/28/20 Teena Orozco MD PCP - General Internal Medicine 11/29/20 03/17/21 Radha Zhang MD PCP - General Internal Medicine 03/18/2110/22 Kathy Miranda MD [address] [place] [address] PCP - General Internal Medicine 11/14/21 documented as of this encounter
--- OUTSIDE RECORDS SUMMARY | 2025-04-16 17:39 | XMS_ITS | Encounter Summary ---
Author Organization [facility] Address [facility] [place] [address] Care Team Providers Care Rehab Consultant Name Role Phone Gaby-Audelia Quiroz MD Primary Care Provider Unavailable Teena Orozco MD Primary Care Provider UnavailRadha Orourke MD Primary Care Provider Unavailable Kathy Miranda MD Primary Care Provider + [phone] Reason for Visit * Reason Onset Date Comments Medication 10/22/2015 Encounter Details Date Type Department Care Team Description 10/22/2015 Telephone Adult Medicine - [address] [address] Gaby-Audelia Quiroz MD Medication Social History Tobacco [...] on filedocumented in this encounter Care Teams Rehab Consultant Relationship Specialty Start Date End Date [place]-Audelia Quiroz MD PCP - General Internal Medicine 08/21/1511/28/20 Teena Orozco MD PCP - General Internal Medicine 11/29/20 03/17/21 Radha Zhang MD PCP - General Internal Medicine 03/18/2110/22 Kathy Miranda MD [address] [place] [address] PCP - General Internal Medicine 11/14/21 documented as of this encounter
--- OUTSIDE RECORDS SUMMARY | 2025-04-16 17:39 | XMS_ITS | Clinical Summary ---
Author Organization [facility] Address [address] [place] [id number] Phone Care Team Providers Care Promotions Representative Name Role Phone Unavailable Primary Care Provider [...] 80 01/02/2015 12:00 AM EDT Temperature 37.3 C (99.2 F) 06/17/2015 12:00 AM EDT Respiratory Rate - - Oxygen Saturation [...] 06/24/2019 06/24/2009, 04/18/2002, 11/08/1998, Additional history exists COVID-19 Vaccine ( season) 2024 HPV Vaccines (1 - 3-dose SCDM series) 2024 Influenza Vaccines (#1) 2025 06/28/20 15, 06/18/2014, 07/15/2007, Additional history exists Hepatitis B Vaccines Completed 05/09/1998, 1997, 1997 HIB Vaccines Completed 11/08/1998, 02/1998, 1997, Additional history exists IPV Vaccines Completed 04/18/2002, 02/1998, 1997, Additional history exists MMR Vaccines Completed 04/18/2002, 07/29/1998 Varicella Vaccines Completed 04/11/2008, 07/29/1998 Meningococcal Vaccine Completed 06/18/2014, 009 Hepatitis A Vaccines Aged Out No long er eligible based on patient's age to complete this topic Men B Vaccine Aged Out No longer elig ible based on patient's age to complete this topic Pneumococcal Vaccine Aged Out No long er eligible based on patient's age to complete this topic
--- OUTSIDE RECORDS SUMMARY | 2025-04-16 17:39 | XMS_ITS ---
Author Name [facility] Organization Unknown Care Team Organization Name Specialty Phone Email Start Date End Da te [facility] [address] Primary Care 04/29/2023 04/10/2024 [facility] Kathy Miranda MD Primary Care 06/30/2022 04/10/2024
--- OUTSIDE RECORDS SUMMARY | 2025-04-16 17:39 | XMS_ITS | Encounter Summary ---
Author Organization [facility] Address [address] [place] [address] Care Team Providers Care Scallop Dredger Name Role Phone Audelia Aguirre MD Primary Care Provider Unavailable Teena Orozco MD Primary Care Provider Unavaila Radha Martinez MD Primary Care Provider Unavailable Kathy Miranda MD Primary Care Provider [phone] Encounter Details Date Type Department Care Team Description 08/27/2015 Release of Information Medical Records [address] [place] [id number] Abstract, Provider Social History Tobacco Use Types [...] on filedocumented in this encounter Care Teams Scallop Dredger Relationship Specialty Start Date End Date Audelia Aguirre MD PCP - General Internal Medicine 08/21/1511/28/20 Teena Orozco MD PCP - General Internal Medicine 11/29/20 03/17/21 Radha Zhang MD PCP - General Internal Medicine 03/18/2110/22 Kathy Miranda MD [address] [place] [id number] PCP - General Internal Medicine 11/14/21 documented as of this encounter
--- OUTSIDE RECORDS SUMMARY | 2025-04-16 17:39 | XMS_ITS | Encounter Summary ---
Author Organization [facility] Address [address] [place] [address] Phone Care Team Providers Care Nursing Home Assistant Administrator Name Role Phone Cristina Franks MD Primary Care Provider [phone] Encounter Details Date Type Department Care Team (Late st Contact Info) Description 01/09/2018 Conversion Encounter [facility] [address] [place] [address] Cristina Franks MD [address] [place] [address] Social History Tobacco Use Types Packs/Day Years [...] on filedocumented in this encounter Care Teams Nursing Home Assistant Administrator Relationship Specialty Start Date End Date Cristina Franks MD [address] [place] [address] PCP - General 12/29/17 10/03/24 documented as of this encounter
--- OUTSIDE RECORDS SUMMARY | 2025-04-16 17:39 | XMS_ITS | Encounter Summary ---
Author Organization [facility] Address [address] [place] [address] Care Team Providers Care Insurance Premium Auditor Name Role Phone Kathy Miranda MD Primary Care Provider + [phone] Encounter Details Date Type Department Care Team Description 11/27/2021 Telephone Adult Medicine - [address] [address] Jessica Puga NP Social History Tobacco Use Types Packs/Day Years [...] Notes * Telephone Encounter - Jenni Gracia L.P.N. - 11/27/2021 3:06 PM EDT Message left on verified voicemail for Demetria to return our call. Please call extension [phone] if she returns FYI * Telephone Encounter - Jessica Puga NP - 11/27/2021 12:42 PM EDT Can you please call gautam Bhatia APRN phone #[phone] since I cannot reach her and shecannot [...] on filedocumented in this encounter Care Teams Insurance Premium Auditor Relationship Specialty Start Date End Date Kathy Miranda MD [facility] [place] [address] PCP - General Internal Medicine 11/14/21 documented as of this encounter
--- OUTSIDE RECORDS SUMMARY | 2025-04-16 17:39 | XMS_ITS | Encounter Summary ---
Author Organization [facility] Address [address] [place] [address] Care Team Providers Care Herbologist Name Role Phone [place]-Audelia Quiroz MD Primary Care Provider Unavailable Teena Orozco MD Primary Care Provider UnavailRadha Orourke MD Primary Care Provider Unavailable Kathy Miranda MD Primary Care Provider + [phone] Reason for Visit * Reason Comments E-prescribe Rx Request Encounter Details Date Type Department Care Team Description 02/14/2020 Refill OBGYN - [place] [address] [place] [address] Solitario Garcia, [facility] [address] [place] [address] E-prescribe Rx Request Social History Tobacco Use [...] EDT WHEN WAS THE PATIENTS LAST ANNUAL DISTRIBUTION SUPERVISOR EXAM? 01/26/19 Does patient have an upcoming [...] the end of the day? NO Payor: [employer] FFS / Plan: HMO $30 [place] [id number] / Product Type: HMO PRE-PAID documented in this encounter Plan of Treatment Not on file documented as of this encounter Visit Diagnoses Not on filedocumented in this encounter Care Teams Herbologist Relationship Specialty Start Date End Date [place]-Audelia Quiroz MD PCP - General Internal Medicine 08/21/1511/28/20 Teena Orozco MD PCP - General Internal Medicine 11/29/20 03/17/21 Radha Zhang MD PCP - General Internal Medicine 03/18/2110/22 Kathy Miranda MD [address] [place] [id number] PCP - General Internal Medicine 11/14/21 documented as of this encounter
== END 2025-04-16 16:15 | disposition home or self-care (01) ==
LOC: HO.ENCR 15:40
PROVIDERS: PCP Physician Assistant; Visit Provider Internal Medicine Endocrinology, Diabetes & Metabolism
DX: E28.2 Polycystic ovarian syndrome (principal)
CPT/HCPCS: 99213

== ENCOUNTER 2025-06-16 08:16 | Outpatient (REF) | payer BC, MEDICAID, SELFPAY ==
[2025-06-29 03:38] LABS: Saliva Cortisol 0.29 mcg/dL
== END 2025-06-16 08:17 | disposition home or self-care (01) ==
LOC: HO.LAB 08:16
PROVIDERS: PCP Physician Assistant; Visit Provider Internal Medicine Endocrinology, Diabetes & Metabolism
DX: E66.01 Morbid (severe) obesity due to excess calories (principal); Z68.41 Body mass index [BMI] 40.0-44.9, adult
CPT/HCPCS: 36415; 80299; 82530; 82533

== ENCOUNTER 2025-06-27 15:16 | Outpatient (AMB) | payer BC, MEDICAID, SELFPAY ==
--- NOTE | 2025-06-27 15:22 | MHC.OFFVIS ---
Vital Signs 06/27/25 15:27 Height 5 ft 4 in Weight 272 lb 11.389 oz BMI 46.8 BP 110/82 Blood Pressure Location Rt brachial Position Sitting Pulse 111 H Pulse Source Pulse Oximeter Pulse Oximetry (%) 97 Oxygen Delivery Method Room Air Intake Visit Reasons: f/u PCOS ? Cushings Intake Note: Patient present for PCOS follow up. Rat Breeder Required: No Accompanied by: Self / Same As Patient Allergies No Known Allergies Allergy (Verified 06/27/25 15:28) Medication List - Last Reconciled 06/27/25 by Glenn Perez MD bupropion HCl XL (Wellbutrin XL) 300 mg PO QAM bupropion HCl XL (Wellbutrin XL) 150 mg PO QAM clonidine HCl 0.1 mg PO BEDTIME dexamethasone 1 mg PO ONCE fluticasone propionate 110 mcg/actuation 1 puff inhalation BID lurasidone (Latuda) 60 mg PO DAILY norgestimate-ethinyl estradiol 0.25-0.035 mg (Sprintec (28)) 1 tab PO DAILY spironolactone 100 mg PO DAILY HPI Comments Details: The patient is a 29-year-old female presenting with concerns regarding suspected Polycystic Ovarian Syndrome (PCOS). Her menstrual periods have been regular on control. She reports facial hair growth on her chin, managed by plucking. Prior testing has included elevated cortisol levels, and she suspects Hadley's syndrome due to symptoms like facial fullness. She has experienced chronic weight issues despite losing 35 pounds since 2022 through lifestyle changes. A history of metformin use was noted for weight loss, which was discontinued due to side effects. The patient has a history of Bipolar Disorder, Type I, and no known personal history of diabetes. - Metformin: Previously used for weight loss; discontinued due to gastrointestinal side effects. - Corticosteroids: Elevation in cortisol noted, linked to ongoing evaluation for possible Ronnie's syndrome but could be due to control pills raising CBG. Menarche was age 11. Menses have been regular . on BCP OCP use: On Sprintec Metformin use: Took but had diarrhea Weight gain: Chronic problem. Lost 35 lbs since 2022 . Calorie deficit and exercise more . Never took wt loss medications. The patient has been practicing a calorie deficit diet since 2022, which has contributed to her weight loss. There is no mention of specific dietary preferences, food allergies, or intolerances. Emphasis on calorie reduction and general diet control is indicated as part of her weight management strategy. Hirsutism/hyperandrogenism: Chin, plucks to get rid of. Is bothersome to treat Trying to conceive/clomiphene: No Ovarian U/S: No T2DM or acanthosis: No -paternal gramndfather Snores at night - seeing sleep specialist - Endocrine System: Reports irregularities possibly indicative of PCOS, facial hair. - Reproductive System: Reports regular periods due to control; denies current ovulatory concerns. - Gastrointestinal System: Reports past metformin use, associated diarrhea. - Cardiovascular/Respiratory Systems: Denies snoring considerations; referred for possible sleep apnea. - Neurological/Psychiatric: Reports previous psychosis, diagnosed with Bipolar Disorder, Type I; no current neuropsychiatric issues mentioned. Lipids: [] BP: [] Labs: Testosterone equals 30. Normal prolactin, normal TSH, normal 17 hydroxy progesterone level. Workup for Hadley's showed elevated midnight salivary cortisol and slightly elevated 24 hour urine free cortisol but repeat 24 hour urine cortisol was normal The patient is a 29-year-old female presenting with concerns regarding potential Hadley's Syndrome and Polycystic Ovary Syndrome (PCOS). The patient underwent a 24-hour urine test which initially showed slightly elevated cortisol levels, but a repeat test returned normal results. The salivary cortisol test was elevated, raising concerns for Hadley's Syndrome, although potential contamination was considered. The ACTH level was normal, which does not rule out Ronnie's Syndrome, as pituitary adenomas can still be present. The patient has a history of slightly elevated testosterone and DHEAS levels, consistent with PCOS. The 17-hydroxyprogesterone level was normal, ruling out congenital adrenal hyperplasia. The patient reports changes in chin hair growth, which has improved with spironolactone treatment. - Spironolactone: Used for managing hirsutism, with noted improvement in chin hair growth. And dexamethasone suppression test off the control pill showed normal suppression of cortisol [facility] Medical History (Updated 02/27/25 @ 20:[address], LDN) Polycystic ovary Surgical History No pertinent past surgical history Family History Mother Hypercholesteremia Father Hypercholesteremia Social History Alcohol intake: current Alcohol intake frequency: a few times a month e-Cigarette/Vaping Use: Currently Using Substance Use Type: Marijuana Assessment & Plan Assessment & Plan (1) Polycystic ovary: Code(s): E28.2 - Polycystic ovarian syndrome Category: Medical Plan: This is a 29-year-old female with workup consistent with PCOS. Dexamethasone suppression test off control pill showed normal suppression 1. Polycystic Ovary Syndrome PCOS) The patient is managing PCOS with spironolactone and control pills, which have been effective. Monitoring of symptoms and weight management is advised. We also talked about use of Zepbound for weight loss which might help the patient sleep apnea as well as PCOS. I placed a script for Zepbound 2.5 mg Q weekly and went over side effects of Zepbound including but not limited to nausea, vomiting and rare risk of pancreatitis. Medications: New Zepbound (tirzepatide (weight loss)) for 4 weeks 2.5 mg (0.5 mL) subcut QWEEK 2 mL 5RF NS Coding Level of Care Code Est Pt Level 3 (24280) Diagnoses Polycystic ovary E28.2
[2025-06-27 15:27] VITALS: BP 110/82; PULSE 111; O2SAT 97; BMI 46.8
--- OUTSIDE RECORDS SUMMARY | 2025-06-27 18:14 | XMS_ITS | Clinical Summary ---
Author Organization Formerly [facility] Address [address] [place] [address] Care Team Providers Care Printing Estimator Name Role Phone Teena Orozco MD Primary [...] age to complete this topic Care Teams Printing Estimator Relationship Specialty Start Date End Date Teena Orozco MD PCP - General Internal Medicine 01/06/21
--- OUTSIDE RECORDS SUMMARY | 2025-06-27 18:14 | XMS_ITS | Clinical Summary ---
Author Organization [facility] Address [address] [place] [address] Care Team Providers Care Jig And Fixture Repairer Name Role Phone Unavailable Primary Care Provider Unavailabl e Allergies No known active allergies Medications albuterol (PROVENTIL HFA; VENTOLIN HFA) 108 (90 Base) MCG/ACT inhaler Inhale 2 puffs every 4 (four) hours as needed. Active fluticasone (FloVENT HFA) 110 mcg/puff inhaler Inhale 2 puffs 2 times a day. Active buPROPion (WELLBUTRIN XL) 300 MG 24 hr tablet Take 300 mg by mouth. Active spironolactone (ALDACTONE) 100 MG tablet Take 100 mg by mouth. 03/29/2025 Active cloNIDine (CATAPRES) 0.1 MG tablet Take 0.1 mg by mouth 2 (two) times a day as needed. 08/29/2024 Active traZODone (DESYREL) 50 MG tablet Take 50 mg by mouth. Active norgestimate-eth inyl estradiol (ORTHO-CYCLEN) 0.25-35 MG-MCG per tablet Take 1 tablet by mouth daily. Active Encounters Date Type Department Care Team Description 04/24/2025 4:50 PM EDT Office Visit [facility] [address] [place] [id number] Wesley Barreto MD [place], [place] History of asthma (Primary Dx); Tachycardia; Shortness of breath 04/24/2025 Travel from Last 3 Months Social History Tobacco Use Types Packs/Day Years Used Date Smoking Tobacco: Never Assessed Comments Unknown Sex and Gender Information Value Date Recorded Sex Assigned at Female 04/24/2025 4:49 PM EDT Legal Sex Female 4:48 PM EDT Gender Identity Female 04/24/2025 4:49 PM EDT Sexual Orientation Choose not to disclose 2024 4:49 PM EDT Last Filed Vital Signs Vital Sign Reading Time Taken Comments Blood Pressure 133/91 04/24/2025 4:58 PM EDT Pulse 127 04/24/2025 5:26 PM EDT Temperature 37.1 C (98.7 F) 04/24/2025 4:58 PM EDT Respiratory Rate 20 04/24/2025 5:26 PM EDT Oxygen Saturation 95% 04/24/2025 5:26 PM EDT Inhaled Oxygen Concentration - - Weight - - Height - - Body Mass Index - - Plan of Treatment Health Maintenance Due Date Last Done Comments Hepatitis C Virus Screening 1997 DTaP/Tdap/Td Vaccines (1 - Tdap) 2016 Hepatitis B Vaccines (1 of 3 - 19+ 3-dose series) 2016 Pap Smear (Ages 21-65) 2018 Influenza Vaccine 03/23/2025 11/09/2022, , 06/30/2018, Additional history exists COVID-19 Vaccine (2024- season) 2025 09/05/2021, 10/28/2020 HIV Screening Completed 01/27/2024 HPV Vaccines (No Doses Required) Completed Pneumococcal Vaccine: Pediatric (0-5 Years) and At-Risk Patients (6 to 49 Years) Aged Out No longer eligible based on patient's age to complete this topic Procedures Procedure Name Priority Date/Time Associated Diagnosis Comments POCT RAPID COVID-19 AG (FDA EUA) Routine 04/24/2025 5:27 PM EDT Shortness of breath from Last 3 Months Results * POCT Rapid COVID-19 Antigen (FDA EUA) (04/24/2025 5:27 PM EDT) COVID-19 Rapid Antigen, POC (FDA EUA) Negative Result Comments: A Positive Result does not rule out bacterial infection or co-infection with other viruses. Clinical correlation advised. A Negative Result in symptomatic patients should be considered presumptive and needs confirmation by PCR. Kit Lot Number 0 Oracle Sql Developer Pass Pass Swab, Nasal Specimen from nose / Unknown 04/24/2025 5:27 PM EDT Gurinder TRISTAN POINT OF CARE TEST ORDERABLES Final Result from Last 3 Months Insurance [facility]
--- OUTSIDE RECORDS SUMMARY | 2025-06-27 18:14 | XMS_ITS | Data Portability ---
Author Organization [place] - [facility], [facility] Address [address] [place] [phone] Assessment Encounter Date Assessment Date Assessment LastModified by Organization Details LastModified Time 05/14/2025 05/14/2025 Evelia Davis is a 29-year-old female with recurrent left nostril epistaxis, mild sleep apnea, and a history of asthma and reflux. The source of the bleeding was identified as the left septum. Chemical cautery was performed to address the bleeding, followed by the placement of dissolvable nasal packing to protect the cauterized area. The patient was advised to use saline solution three to four times daily to keep the nasal passages moist and apply KY jelly at night to prevent dryness. She was educated on the use of Afrin spray for any recurrent bleeding and provided information about nasal tampons and BleedCease products for additional management. The patient was informed about the potential exacerbation of bleeding with ibuprofen and advised to use Tylenol for pain relief instead. She was also counseled on the importance of weight loss to help manage her mild sleep apnea and was encouraged to follow up with her sleep specialist to obtain a CPAP machine with a humidifying chamber. She was asked to upload a copy of her sleep study to the patient portal for review. FOLLOW-UP: The patient was advised to return in a few months for reassessment of her nasal symptoms and to consider allergy testing if she develops significant pressure or congestion. Procedure Documentation: - Chemical cautery performed on the left septum. - Dissolvable nasal packing placed in the left nostril. [email or web address] Not available 05/14/2025 15:43:08 Plan of Treatment Reminders Order Date Submit Date Provider Last Modified By Organization Details Last Modified Time Details Appointments None record ed. Lab None record ed. Referral None record ed. Procedures None record ed. Surgeries None record ed. Imaging None record ed. Medication Orders None record ed. Patient TargetsNo targets recorded. Patient Instructions Encounter Date Encounter Id Patient Instructions Last Modified By Organization Details Last Modified Time 05/14/2025 [id number] nosebleed information linh Not available 05/14/2025 15:41:09 - Use saline solution three to four times daily to keep nasal passages moist. - Apply KY jelly at night to prevent dryness. - Use Afrin spray for recurrent bleeding. - Consider nasal tampons and BleedCease products for additional management. - Avoid ibuprofen and use Tylenol for pain relief. - Follow up with the sleep specialist to obtain a CPAP machine with a humidifying chamber. - Upload a copy of the sleep study to the patient portal for review. linh Not available 05/14/2025 15:43:08 Please note: Parts of this encounter note have been generated by AI based on audio conversation. Patient consent was required prior to utilizing this technology. Content review was required prior to finalizing the note. linh Not available 05/14/2025 15:43:08 Reason for Referral None Reported. Problems Name Problem SNOMED Code Status Onset Date Resolution Date Notes Provider Name and Address Organization Details Recorded Time Deviated nasal septum 332494956 Active 025 ARNIE BRENNAN MD [address] [place] [address], [phone], [facility] 5 15:39:20 Bleeding from nose 809171919 Active 025 ARNIE BRENNAN MD [address], [phone], [facility] [place] [facility] 5 15:39:29 Migraine without aura, not refractory 354581146 Active 025 ARNIE BERNNAN MD [address], [phone], [facility] 5 15:39:55 Body mass index 30+ - obesity 933535835 Active 025 ARNIE BRENNAN MD [address] [address], [place], [address], [facility] 15:40:04 Drug-induced obesity 879804975 Active 025 ARNIE BRENNAN MD [address] [address], [place], [address], [facility] [place] 15:40:27 Problem Notes None recorded. Procedures Surgical History Date Name Laterality Status Provider Name and Address Organization Details Recorded Time 05/14/20 Epistaxis Simple Nasal Cautery Left completed ARNIE MONTANEZ MD [address], [phone], [facility] 05/14/2025 15:41:07 implantation of dental prosthesis into jaw completed ARNIE MONTANEZ MD [address] [address], [place], [address], [facility] 05/14/2025 15:38:16 Imaging Results None recorded. Procedure Notes None recorded. Medical Equipment None Reported. Allergies No known drug allergies Medications Name Sig Start Date Stop Date Status Note LastModified by Organization Details LastModified Time diclofenac 3 % topical gel APPLY 1 APPLICATI ON TOPICALLY 2 TIMES A DAY FOR 10 DAYS 05/14 completed Not Available Not Available Not Available norgestimat e 0.25 mg-ethinyl estradiol 0.035 mg tablet TAKE 1 TABLET BY MOUTH EVERY DAY 05/14 completed Not Available Not Available Not Available clonidine HCl 0.1 mg tablet TAKE 1 TABLET BY MOUTH TWICE A DAY NEEDED active Not Available Not Available No t Available ipratropium 0.5 mg-albutero l 3 mg (2.5 mg base)/3 mL nebulizatio n soln INHALE 1 VIAL (3 ML) VIA NEBULIZER 4 TIMES A DAY active Not Available Not Available No t Available valacyclovi r 1 gram tablet TAKE 2 TABLETS TWICE A DAY FOR 1 DAY OK TO REPEAT NEEDED 05/14 completed Not Available Not Available Not Available albuterol sulfate 1.25 mg/3 mL solution for nebulizatio n INHALE 3 MLS VIA NEBULIZER 4 TIMES A DAY NEEDED active Not Available Not Available No t Available prednisone 20 mg tablet TAKE 3 TABLETS BY MOUTH DAILY FOR 5 DAYS 05/14 completed Not Available Not Available Not Available spironolact one 100 mg tablet TAKE 1 TABLET BY MOUTH EVERY DAY active Not Available Not Available No t Available valacyclovi r 500 mg tablet TAKE 1 TAB DAILY MAY TAKE 1 TAB TWICE DAILY DURING AN ACUTE OUTBREAK, 05/14 completed Not Available Not Available Not Available nystatin-tr iamcinolone 100,000 unit/gram-0 .1 % topical ointment USE 1 APPLICATI ON TOPICALLY 3 TIMES A DAY FOR 14 DAYS 05/14 completed Not Available Not Available Not Available amoxicillin 875 mg tablet TAKE 1 TABLET BY MOUTH EVERY 12 HOURS FOR 7 DAYS 05/14 completed Not Available Not Available Not Available dexamethaso ne 1 mg tablet TAKE 1 TABLET BY MOUTH ONCE 05/14 completed Not Available Not Available Not Available lansoprazol e 30 mg capsule,del ayed release TAKE 1 CAPSULE BY MOUTH 1 TIME EACH DAY. DO NOT CRUSH OR CHEW. active Not Available Not Available No t Available mupirocin 2 % topical ointment APPLY TO AFFECTED AREA 3 TIMES A DAY 05/12 completed Not Available Not Available Not Available albuterol sulfate HFA 90 mcg/actuati on aerosol inhaler TAKE 1 INHALATIO N EVERY 4 HOURS NEEDED FOR SHORTNESS OF BREATH OR WHEEZING active Not Available Not Available No t Available bupropion HCl XL 300 mg 24 hr tablet, extended release TAKE 1 TABLET BY MOUTH EVERY DAY active Not Available Not Available No t Available bupropion HCl XL 150 mg 24 hr tablet, extended release TAKE 1 TABLET BY MOUTH ONCE A DAY CONCURREN TLY WITH 300MG TABLET active Not Available Not Available No t Available lurasidone 40 mg tablet TAKE 1 TABLET BY MOUTH EVERY DAY active Not Available Not Available No t Available lurasidone 60 mg tablet TAKE 1 TABLET BY MOUTH EVERY DAY 05/14 completed Not Available Not Available Not Available Vitals Date Recorded Body height Body mass index (BMI) Body weight Provider Name and Address Organization Details Last Updated DateTime 05/14/2025 162.56 cm 43.8 kg/m2 816159.05 g Cora Torres [place] - [facility] 05/14/2025 14:53:14 Social History None recorded. Functional Status None recorded. Mental Status None recorded. Family History Nothing Reported Notes: Denies family history of bleeding disorders. - Denies family history of bleeding disorders. Medical History Condition Response Anxiety Y Depression Y Asthma Y Sleep Disorder Y Gynecological HistoryNo gynecological history recorded. Obstetrics History GPAL:G 0 P 0 0 0 0 Past Encounters Encounter ID Performer Location Encounter Start Date Encounter Closed Date Diagnosis/Indication Diagnosis SNOMED-CT Code Diagnosis ICD10 Code Diagnosis IMO Codes Diagnosis Note [id number] ARNIE NAPOLES MD [facility] [address] [phone] 05/14/2025 14:44:58 05/14/2025 15:44:12 Deviated nasal septum 746337552 J34.2 221839 Bleeding from nose 80763 6005 R04.0 Migraine w ithout aura, not refractory 245361807 G43.009 483926 Drug-induced obesity 190 311856 E66.1 [id number] Health Concerns Section Related Observation LastModified by Organization Detai ls LastModified Time None Recorded Concern Status LastModified by Organization Details LastModified Time None Recorded Advance Directives Directive None Recorded Payers Insurance Date Sequence Insurance Name Policy Number Policy Pantoja Covered Member ID Pantoja Member ID Guarantor Name 05/14/[address] [place] [address] [id number] Evelia Davis [id number] Evelia Davis 05/11/2025 1 [place] [facility] [id number] Maria Elena Davis [id number] Evelia Davis 05/14/2025 2 [place] [facility] Evelia Davis [id number] Evelia Davis Notes Date Note Type Note Provider Name and Address Organization Details Recorded Time 05/14/2025 text/html Evelia Davis is a 29-year-old female who presents for evaluation of recurrent nosebleeds. She reports experiencing nosebleeds for approximately ten years, occurring on and off. Recently, the frequency has increased to two to three times per week. She notes that the bleeding is exclusively from her left nostril. She denies any family or personal history of bleeding disorders, heavy menstrual periods, or easy bleeding from minor scratches. She is currently taking bupropion 450 mg, Latuda 40 mg, spironolactone 100 mg, lansoprazole occasionally for reflux, ipratropium-albuterol solution, and clonidine as needed. She has mild asthma and reflux. She also reports mild sleep apnea and is in the process of obtaining a CPAP machine through her insurance. 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 She denies any history of surgeries but mentions having had a dental implant. ARNIE MONTANEZ MD [address] [place] [address], [place], [address], [facility] 05/14/2025 15:43:48 OBGyn Episode No OBEpisode recorded.
--- OUTSIDE RECORDS SUMMARY | 2025-06-27 18:14 | XMS_ITS | Clinical Summary ---
Author Organization [facility] Address [address] [place] [phone] Phone Care Team Providers Care Supervisor Public Health Nursing Name Role Phone Unavailable Primary Care Provider [...] 06/24/2019 06/24/2009, 04/18/2002, 11/08/1998, Additional history exists HPV Vaccines (1 - 3-dose SCDM series) 2024 Influenza Vaccines (#1) 2025 06/28/20 15, 06/18/2014, 07/15/2007, Additional history exists COVID-19 Vaccine ( season) 2025 Hepatitis B Vaccines Completed 05/09/1998, 1997, 1997 [...]
--- OUTSIDE RECORDS SUMMARY | 2025-06-27 18:14 | XMS_ITS | Encounter Summary ---
Author Organization [facility] Address [address] [place] [address] Phone Care Team Providers Care Snack Bar Cook Name Role Phone Cristina Franks MD Primary Care Provider [phone] Encounter Details Date Type Department Care Team (Late st Contact Info) Description 01/09/2018 Conversion Encounter [facility] [address] [place] [address] Cristina Franks MD [address] [place] [address] Social History Tobacco Use Types Packs/Day Years [...] on filedocumented in this encounter Care Teams Snack Bar Cook Relationship Specialty Start Date End Date Cristina Franks MD [address] [place] [address] PCP - General 12/29/17 10/03/24 documented as of this encounter
== END 2025-06-27 15:50 | disposition home or self-care (01) ==
LOC: HO.ENCR 15:17
PROVIDERS: PCP Physician Assistant; Visit Provider Internal Medicine Endocrinology, Diabetes & Metabolism
DX: E28.2 Polycystic ovarian syndrome (principal)
CPT/HCPCS: 99213